=== PATIENT | male | born 1940 | race Caucasian/White ===

== ENCOUNTER → 2017-04-17 08:28 | Outpatient (POV) | payer MEDICARE, SELFPAY | PROVIDERS: Family Provider Internal Medicine Adolescent Medicine; PCP Internal Medicine Adolescent Medicine; Visit Provider Thoracic Surgery (Cardiothoracic Vascular Surgery) | DX: Z00.00 Encounter for general adult medical examination without abnormal findings (principal) ==

== ENCOUNTER → 2017-06-10 08:49 | Outpatient (CLI) | payer MEDICARE, SELFPAY ==
[2017-06-10 10:11] LABS: Prostate Specific Ag, Diagnost 8.66 ng/mL (0.0-4.0)
== END ==
PROVIDERS: Visit Provider Urology
DX: R97.20 Elevated prostate specific antigen [PSA] (principal)
CPT/HCPCS: 36415; 84153

== ENCOUNTER → 2017-07-22 16:06 | Outpatient (CLI) | payer MEDICARE, SELFPAY ==
[2017-07-22 17:35] LABS: Prostate Specific Ag Screen 9.2 ng/mL (0.0-4.0)
== END ==
PROVIDERS: Visit Provider Urology
DX: R97.20 Elevated prostate specific antigen [PSA] (principal); Z12.5 Encounter for screening for malignant neoplasm of prostate
CPT/HCPCS: 36415; G0103

== ENCOUNTER → 2017-10-16 08:33 | Outpatient (CLI) | payer MEDICARE, SELFPAY ==
--- NOTE | 2017-10-16 08:34 | CI_ITS ---
Cerebrovascular Exam Indications: 433.10 Occlusion/stenosis of carotid artery without cerebral infarction. IMPRESSIONS 1. The bilateral vertebral arteries are patent with normal antegrade flow. 2. Study suggests 20-49% stenosis involving the right internal carotid artery. 3. Study suggests 50-69% stenosis Left internal carotid. No change from the prior study. . Carotid duplex study. Complete study and Doppler flow study including spectral analysis, color and stafford scale imaging. Location: Vascular laboratory. Patient status: Outpatient. Tables: Arterial flow: + +--------+--------+ Location V sys V ed + +--------+--------+ Right CCA - proximal 73.9cm/s 19.6cm/s + +--------+--------+ Right CCA - distal 72.3cm/s 21.2cm/s + +--------+--------+ Right ECA 78.6cm/s -------- + +--------+--------+ Right ICA - proximal 66.8cm/s 22cm/s + +--------+--------+ Right ICA - mid 60.5cm/s 20.4cm/s + +--------+--------+ Right ICA - distal 89.6cm/s 32.2cm/s + +--------+--------+ Right vertebral 39.3cm/s -------- + +--------+--------+ Left CCA - proximal 85.6cm/s 20.4cm/s + +--------+--------+ Left CCA - distal 73.1cm/s 22cm/s + +--------+--------+ Left ECA 99.8cm/s -------- + +--------+--------+ Left ICA - proximal 147cm/s 43.2cm/s + +--------+--------+ Left ICA - mid 105cm/s 26.7cm/s + +--------+--------+ Left ICA - distal 76.2cm/s 25.1cm/s + +--------+--------+ Left vertebral 37.7cm/s -------- + +--------+--------+ Velocity ratios: + + + + + + Right, V sys Right, V ed Left, V sys Left, V ed + + + + + + Max ICA/dist CCA 1.24 1.52 2.01 1.96 + + + + + + (Report amended ) Electronically signed by: Jameel Metzger [id number]
== END ==
PROVIDERS: Family Provider Internal Medicine Adolescent Medicine; PCP Internal Medicine Adolescent Medicine; Visit Provider Internal Medicine
DX: R09.89 Other specified symptoms and signs involving the circulatory and respiratory systems (principal)
CPT/HCPCS: 93880

== ENCOUNTER → 2017-12-18 08:41 | Outpatient (CLI) | payer MEDICARE, SELFPAY ==
[2017-12-18 09:42] LABS: Basophils # 0.1 K/mm3 (0-0.2); Basophils % 0.7 % (0.1-2.0); Eosinophils # 0.2 K/mm3 (0.0-0.4); Eosinophils % 2.7 % (0.1-12.0); Hematocrit 46.4 % (42.0-52.0); Hemoglobin 14.9 g/dL (14.1-18.0); Lymphocytes # 2.3 K/mm3 (0.7-4.5); Lymphocytes % 29.6 K/mm3 (10-50); Mean Corpuscular HGB Conc 32.2 g/dL (31.8-35.4); Mean Corpuscular Hemoglobin 30.2 pg (27.0-31.2); Mean Corpuscular Volume 93.6 fl (80-94); Mean Platelet Volume 6.5 fl (7.4-10.4); Monocytes # 0.4 K/mm3 (0.1-1.0); Monocytes % 5.5 % (1.7-9.3); Neutrophils # 4.8 K/mm3 (1.8-7.8); Neutrophils % 61.5 % (37.0-80.0); Platelet Count 237 K/mm3 (142-424); Red Blood Count 4.96 M/mm3 (4.60-6.20); Red Cell Distribution Width 13.8 % (11.5-17.5); White Blood Count 7.8 K/mm3 (4.8-10.8)
[2017-12-18 10:19] LABS: Hemoglobin A1C 8.7 % (0.0-7.0)
[2017-12-18 11:32] LABS: Alanine Aminotransferase 16 U/L (12-78); Albumin Level 3.7 gm/dL (3.4-5.0); Albumin/Globulin Ratio 1.1 (1.1-1.8); Alkaline Phosphatase 73 U/L (46-116); Anion Gap 9.5 mEq/L (5-15); Aspartate Amino Transferase 10 U/L (15-37); Bilirubin,Total 0.8 mg/dL (0.2-1.0); Blood Urea Nitrogen 17 mg/dL (7-18); Calcium 9.5 mg/dL (8.5-10.1); Carbon Dioxide 34 mmol/L (21.0-32.0); Chloride 103 mmol/L (98-107); Chol/HDL Ratio 2.2 (1-3.5); Cholesterol 93 mg/dL (140-200); Creatinine,Serum 0.84 mg/dL (0.70-1.30); Estimated Glomerular Filt Rate 89 ml/min (>60); GFR (African American) 108 ML/MIN (>60); Globulin 3.4 gm/dl (1.3-3.2); Glucose 78 mg/dL (74-106); HDL Cholesterol 43 mg/dL (27-67); LDL Cholesterol 26 mg/dL (0-130); Potassium 3.5 mmoL/L (3.5-5.1); Prostate Specific Ag, Diagnost 7.41 ng/mL (0.0-4.0); Sodium 143 mmol/L (136-145); Thyroid Stimulating Hormone 1.74 uIU/ml (0.358-3.740); Total Protein,Serum 7.1 gm/dL (6.4-8.2); Triglycerides 121 mg/dL (30-200); VLDL Cholesterol 24 mg/dL (0-40)
[2017-12-19 18:20] LABS: Vitamin B12 523 pg/mL (232-1245)
== END ==
PROVIDERS: PCP Nurse Practitioner Family; Visit Provider Urology
DX: E53.8 Deficiency of other specified B group vitamins (principal); E11.65 Type 2 diabetes mellitus with hyperglycemia; R97.20 Elevated prostate specific antigen [PSA]; R41.3 Other amnesia
CPT/HCPCS: 36415; 80053; 80061; 82607; 83036; 84153; 84443; 85025

== ENCOUNTER → 2018-02-02 13:35 | Outpatient (POV) | payer MEDICARE, SELFPAY | PROVIDERS: Visit Provider Dermatology | DX: Z00.00 Encounter for general adult medical examination without abnormal findings (principal) ==

== ENCOUNTER → 2018-03-30 12:17 | Outpatient (CLI) | payer MEDICARE, SELFPAY ==
--- NOTE | 2018-03-30 12:20 | CI_ITS ---
Cerebrovascular Exam Indications: 433.10 Occlusion/stenosis of carotid artery without cerebral infarction. IMPRESSIONS 1. The bilateral vertebral arteries are patent with normal antegrade flow. 2. Study suggests 20-49% stenosis involving the right internal carotid artery. 3. Study suggests 50-69% stenosis involving the left internal carotid artery. No change from the study of 16-Oct-2017. Carotid duplex study. Complete study and Doppler flow study including spectral analysis, color and stafford scale imaging. Height: Height: 172.7cm. Height: 68in. Weight: Weight: 77.1kg. Weight: 169.6lb. Body mass index: BMI: 25.8kg/m^2. Body surface area: BSA: 1.94m^2. Location: Vascular laboratory. Patient status: Outpatient. Tables: Arterial flow: + +--------+--------+ Location V sys V ed + +--------+--------+ Right CCA - proximal 57.4cm/s 18.9cm/s + +--------+--------+ Right CCA - distal 69.1cm/s 18.9cm/s + +--------+--------+ Right ECA 67.6cm/s -------- + +--------+--------+ Right ICA - proximal 79.4cm/s 28.3cm/s + +--------+--------+ Right ICA - mid 55.8cm/s 22.8cm/s + +--------+--------+ Right ICA - distal 56.6cm/s 25.1cm/s + +--------+--------+ Right vertebral 47.9cm/s -------- + +--------+--------+ Left CCA - proximal 73.9cm/s 17.3cm/s + +--------+--------+ Left CCA - distal 73.1cm/s 20.4cm/s + +--------+--------+ Left ECA 80.9cm/s -------- + +--------+--------+ Left ICA - proximal 148cm/s 50.3cm/s + +--------+--------+ Left ICA - mid 132cm/s 29.1cm/s + +--------+--------+ Left ICA - distal 66cm/s 22.8cm/s + +--------+--------+ Left vertebral 29.9cm/s -------- + +--------+--------+ Velocity ratios: + + + + + + Right, V sys Right, V ed Left, V sys Left, V ed + + + + + + Max ICA/dist CCA 1.15 1.5 2.02 2.47 + + + + + + (Report amended ) Electronically signed by: Jameel Metzger [id number]
== END ==
PROVIDERS: PCP Internal Medicine Adolescent Medicine; Visit Provider Nurse Practitioner Family
DX: I65.23 Occlusion and stenosis of bilateral carotid arteries (principal)
CPT/HCPCS: 93880

== ENCOUNTER → 2018-05-12 09:27 | Outpatient (CLI) | payer MEDICARE, SELFPAY ==
[2018-05-12 09:53] LABS: Basophils % 0.5 % (0.1-2.0); Eosinophils # 0.2 K/mm3 (0.0-0.4); Eosinophils % 2.6 % (0.1-12.0); Hematocrit 41.7 % (42.0-52.0); Hemoglobin 14.2 g/dL (14.1-18.0); Lymphocytes # 2.3 K/mm3 (0.7-4.5); Lymphocytes % 34.4 % (10-50); Mean Corpuscular Hemoglobin 31.2 pg (27.0-31.2); Mean Corpuscular Volume 91.8 fl (80-94); Mean Platelet Volume 6.5 fl (7.4-10.4); Monocytes # 0.5 K/mm3 (0.1-1.0); Monocytes % 6.8 % (1.7-9.3); Neutrophils # 3.7 K/mm3 (1.8-7.8); Neutrophils % 55.7 % (37.0-80.0); Platelet Count 212 K/mm3 (142-424); Red Blood Count 4.54 M/mm3 (4.60-6.20); Red Cell Distribution Width 13.7 % (11.5-17.5); White Blood Count 6.7 K/mm3 (4.8-10.8)
[2018-05-12 10:46] LABS: Hemoglobin A1C 6.8 % (0.0-7.0)
[2018-05-12 10:51] LABS: Alanine Aminotransferase 22 U/L (12-78); Albumin Level 3.5 gm/dL (3.4-5.0); Albumin/Globulin Ratio 1.1 (1.1-1.8); Alkaline Phosphatase 69 U/L (46-116); Anion Gap 8.7 mEq/L (5-15); Aspartate Amino Transferase 11 U/L (15-37); Bilirubin,Total 0.7 mg/dL (0.2-1.0); Blood Urea Nitrogen 18 mg/dL (7-18); Calcium 9.3 mg/dL (8.5-10.1); Carbon Dioxide 33 mmol/L (21.0-32.0); Chloride 104 mmol/L (98-107); Chol/HDL Ratio 2.5 (1-3.5); Cholesterol 111 mg/dL (140-200); Creatinine,Serum 1.05 mg/dL (0.70-1.30); Estimated Glomerular Filt Rate 69 ml/min (>60); GFR (African American) 83 ML/MIN (>60); Globulin 3.1 gm/dl (1.3-3.2); Glucose 181 mg/dL (74-106); HDL Cholesterol 45 mg/dL (27-67); LDL Cholesterol 43 mg/dL (0-130); Potassium 3.7 mmoL/L (3.5-5.1); Sodium 142 mmol/L (136-145); Thyroid Stimulating Hormone 2.04 uIU/ml (0.358-3.740); Total Protein,Serum 6.6 gm/dL (6.4-8.2); Triglycerides 113 mg/dL (30-200); VLDL Cholesterol 23 mg/dL (0-40)
[2018-05-13 09:49] LABS: Vitamin B12 394 pg/mL (232-1245)
== END ==
PROVIDERS: Visit Provider Nurse Practitioner Family
DX: E11.9 Type 2 diabetes mellitus without complications (principal); E78.5 Hyperlipidemia, unspecified; F02.80 Dementia in other diseases classified elsewhere, unspecified severity, without behavioral disturbance, psychotic disturbance, mood disturbance, and anxiety; E53.8 Deficiency of other specified B group vitamins
CPT/HCPCS: 36415; 80053; 80061; 82607; 83036; 84443; 85025

== ENCOUNTER → 2018-07-27 09:18 | Outpatient (CLI) | payer MEDICARE, SELFPAY ==
[2018-07-27 11:04] LABS: Prostate Specific Ag, Diagnost 9.54 ng/mL (0.0-4.0)
== END ==
PROVIDERS: Visit Provider Urology
DX: R97.20 Elevated prostate specific antigen [PSA] (principal)
CPT/HCPCS: 36415; 84153

== ENCOUNTER → 2018-08-10 12:36 | Outpatient (CLI) | payer MEDICARE, SELFPAY ==
--- NOTE | 2018-08-10 12:41 | CA_ITS ---
PROCEDURE: 2-D M-mode and color Doppler study INDICATIONS FOR THE TEST: Chest pain COPD Heart Murmur Tobacco SmokingEX Palpitations Fatigue Syncope Edema HypertensionXDiabetes MellitusX Rheumatic Fever SOB KNIGHT Obesity HyperlipidemiaX Family History HD Additional History RBBB,CAD, PATIENT INFORMATION HEIGHT: 67 WEIGHT:169 GENDER: Male B/P:118/67 2-D/M-MODE INTERPRETATION: 2-D MEASUREMENTS OBSERVED VALUES IN CMS Right Ventricular Dimension (RVDd) 3.0 Interventricular Septum (Thickness)(IVsd) 1.0 Left Ventricular Internal Dimensions(LVIDd) 4.3 Left Ventricular Posterior Wall (Thickness)(LVPWd) 1.0 Aortic Root 3.6 Aortic Cusp Separation .8 Left Atrial Dimensions (LAD) 2.1 2D 1. Left atrium is mildly enlarged, left ventricle is normal size, mild concentric left ventricular hypertrophy, visually estimated ejection fraction 55% with no regional wall motion abnormality. 2. The right atrium and right ventricle are mildly enlarged with normal contractility. 3. The aortic valve is heavily calcified with severe reduction in the leaflet mobility. 4. The mitral valve has mitral annular calcification which extends and both anterior and posterior mitral leaflet. 5. The tricuspid valve is grossly normal. 6. The pulmonic valve is poorly visualized. 7. No significant pericardial effusion noted. DOPPLER INTERROGATION: 1. The maximum aortic out flow velocity recorded study 4.4 m/s, resulting in a mean gradient across valve of 46 mmHg, this represents severe aortic stenosis, there is mild aortic insufficiency, aortic valve area is not accurately calculated in this study. 2. The mitral inflow velocity within normal range, there is no mitral stenosis, there is mild mitral regurgitation, Doppler evidence of impaired LV relaxation seen, there is no tissue Doppler performed. 3. Mild tricuspid regurgitation, tricuspid regurgitation jet velocity is inadequate for calculation of the right ventricular systolic pressure. CONCLUSION: 1. Biatrial enlargement, normal left ventricular size, mild concentric left ventricular hypertrophy, visually estimated ejection fraction 55% with no regional wall motion abnormality, Doppler evidence of impaired relaxation seen. 2. Mildly enlarged right ventricle with normal contractility. 3. Thickened and calcified aortic valve with mean gradient across valve of 46 mmHg represents severe aortic stenosis, there is mild aortic insufficiency. 4. Mild mitral and tricuspid regurgitation 5. No significant pericardial effusion noted.
== END ==
PROVIDERS: PCP Nurse Practitioner Family; Visit Provider Internal Medicine
DX: I35.0 Nonrheumatic aortic (valve) stenosis (principal)
CPT/HCPCS: 93306

== ENCOUNTER → 2018-10-01 09:17 | Outpatient (CLI) | payer MEDICARE, SELFPAY ==
--- NOTE | 2018-10-01 09:20 | CI_ITS ---
Cerebrovascular Exam Indications: 433.10 Occlusion/stenosis of carotid artery without cerebral infarction. IMPRESSIONS 1. The bilateral vertebral arteries are patent with normal antegrade flow. 2. Study suggests 20-49% stenosis involving the right internal carotid artery. No change from the study of March 2018. 3. Study suggests 50-69% stenosis involving the left internal carotid artery. No change from the study of March 2018. History: Memory loss. Risk factors: Hypertension. Carotid duplex study. Complete study and Doppler flow study including spectral analysis, color and stafford scale imaging. Height: Height: 172.7cm. Height: 68in. Weight: Weight: 61.2kg. Weight: 134.7lb. Body mass index: BMI: 20.5kg/m^2. Body surface area: BSA: 1.71m^2. Location: Vascular laboratory. Patient status: Outpatient. Tables: Arterial flow: + +--------+--------+ Location V sys V ed + +--------+--------+ Right CCA - proximal 94.3cm/s 23.7cm/s + +--------+--------+ Right CCA - distal 77.1cm/s 18.2cm/s + +--------+--------+ Right ECA 113cm/s -------- + +--------+--------+ Right ICA - proximal 123cm/s 40.5cm/s + +--------+--------+ Right ICA - mid 88.9cm/s 26.5cm/s + +--------+--------+ Right ICA - distal 98.7cm/s 29.5cm/s + +--------+--------+ Right vertebral 50.3cm/s -------- + +--------+--------+ Left CCA - proximal 79.2cm/s 17cm/s + +--------+--------+ Left CCA - distal 96.2cm/s 20.1cm/s + +--------+--------+ Left ECA 132cm/s -------- + +--------+--------+ Left ICA - proximal 189cm/s 67.3cm/s + +--------+--------+ Left ICA - mid 136cm/s 27.5cm/s + +--------+--------+ Left ICA - distal 67.1cm/s 22.5cm/s + +--------+--------+ Left vertebral 34.7cm/s -------- + +--------+--------+ Velocity ratios: + + + + + + Right, V sys Right, V ed Left, V sys Left, V ed + + + + + + Max ICA/dist CCA 1.6 2.23 1.96 3.35 + + + + + + (Report amended ) Electronically signed by: Jameel Metzger [id number]
== END ==
PROVIDERS: PCP Internal Medicine Adolescent Medicine; Visit Provider Internal Medicine
DX: I65.23 Occlusion and stenosis of bilateral carotid arteries (principal)
CPT/HCPCS: 93880

== ENCOUNTER → 2018-10-26 10:01 | Outpatient (CLI) | payer MEDICARE, SELFPAY ==
[2018-10-26 10:21] LABS: Basophils % 0.4 % (0.1-2.0); Eosinophils # 0.2 K/mm3 (0.0-0.4); Eosinophils % 2.1 % (0.1-12.0); Hematocrit 42.7 % (42.0-52.0); Hemoglobin 14.3 g/dL (14.1-18.0); Lymphocytes # 3.2 K/mm3 (0.7-4.5); Lymphocytes % 36.2 % (10-50); Mean Corpuscular HGB Conc 33.6 g/dL (31.8-35.4); Mean Corpuscular Volume 92.2 fl (80-94); Mean Platelet Volume 6.6 fl (7.4-10.4); Monocytes # 0.5 K/mm3 (0.1-1.0); Monocytes % 5.5 % (1.7-9.3); Neutrophils # 4.9 K/mm3 (1.8-7.8); Neutrophils % 55.9 % (37.0-80.0); Platelet Count 255 K/mm3 (142-424); Red Blood Count 4.63 M/mm3 (4.60-6.20); Red Cell Distribution Width 13.6 % (11.5-17.5); White Blood Count 8.8 K/mm3 (4.8-10.8)
[2018-10-26 11:05] LABS: Albumin Level 3.5 gm/dL (3.4-5.0); Albumin/Globulin Ratio 1.1 (1.1-1.8); Alkaline Phosphatase 75 U/L (46-116); Blood Urea Nitrogen 16 mg/dL (7-18); Chloride 106 mmol/L (98-107); Cholesterol 110 mg/dL (140-200); Globulin 3.2 gm/dl (1.3-3.2); Total Protein,Serum 6.7 gm/dL (6.4-8.2); Triglycerides 124 mg/dL (30-200); VLDL Cholesterol 25 mg/dL (0-40)
[2018-10-26 11:44] LABS: Alanine Aminotransferase 20 U/L (12-78); Aspartate Amino Transferase 12 U/L (15-37); Bilirubin,Total 0.7 mg/dL (0.2-1.0); Calcium 9.5 mg/dL (8.5-10.1); Carbon Dioxide 30 mmol/L (21.0-32.0); Chol/HDL Ratio 2.6 (1-3.5); Creatinine,Serum 0.92 mg/dL (0.70-1.30); Estimated Glomerular Filt Rate 80 ml/min (>60); GFR (African American) 97 ML/MIN (>60); HDL Cholesterol 43 mg/dL (27-67); LDL Cholesterol 42 mg/dL (0-130); Sodium 147 mmol/L (136-145)
[2018-10-26 12:08] LABS: Glucose 39 mg/dL (74-106)
[2018-10-26 14:19] LABS: Hemoglobin A1C 6.6 % (0.0-7.0)
[2018-10-27 11:14] LABS: Vitamin B12 793 pg/mL (232-1245)
== END ==
PROVIDERS: Visit Provider Nurse Practitioner Family
DX: E11.9 Type 2 diabetes mellitus without complications (principal); E78.5 Hyperlipidemia, unspecified; E53.8 Deficiency of other specified B group vitamins; I10 Essential (primary) hypertension; Z79.84 Long term (current) use of oral hypoglycemic drugs
CPT/HCPCS: 36415; 80053; 80061; 82607; 83036; 85025

== ENCOUNTER → 2019-01-19 13:00 | Outpatient (CLI) | payer MEDICARE, SELFPAY ==
[2019-01-19 14:47] LABS: Prostate Specific Ag, Diagnost 8.07 ng/mL (0.0-4.0)
== END ==
PROVIDERS: Visit Provider Urology
DX: R97.20 Elevated prostate specific antigen [PSA] (principal)
CPT/HCPCS: 36415; 84153

== ENCOUNTER → 2019-04-12 08:13 | Outpatient (CLI) | payer MEDICARE, SELFPAY ==
--- NOTE | 2019-04-12 08:14 | CA_ITS ---
APPROVED REPORT Water Quality Tester: CT Laterality: Bilateral Study Quality: AdequateGood Indications: bruits Risk Factors years Treated with medical therapy : Diabetes Doppler Spectral Velocity Analysis ECA (R) 108.50/8.20 cm/s ECA (L) 169.10/126.20 cm/s dICA (R) 94.30/23.90 cm/s dICA (L) 149.00/19.50 cm/s Lincoln (R) 89.00/37.40 cm/s Lincoln (L) 167.80/35.90 cm/s pICA (R) 142.20/29.90 cm/s pICA (L) 244.30/76.90 cm/s dCCA (R) 74.90/18.20 cm/s dCCA (L) 76.30/16.50 cm/s pCCA (R) 144.40/22.50 cm/s pCCA (L) 90.50/15.00 cm/s Vert (R) 55.10/18.20 cm/s Vert (L) 37.10/7.50 cm/s ICA/CCA 1.90 ICA/CCA 3.20 Findings Duplex evaluation demonstrates stenosis of the right proximal internal carotid artery in the range of 50-69% with PSV =140 cm/sec, EDV <100 cm/sec, and IC/CC Ratio <4.0., lower end of scale. Duplex evaluation demonstrates stenosis of the left proximal internal carotid artery in the range of 50-69% with PSV =140 cm/sec, EDV <100 cm/sec, and IC/CC Ratio <4.0. Duplex evaluation demonstrates antegrade flow of the bilateral Vertebral Arteries. Conclusion Duplex evaluation demonstrates stenosis of the right proximal internal carotid artery in the range of 50-69% with PSV =140 cm/sec, EDV <100 cm/sec, and IC/CC Ratio <4.0., lower end of scale. Duplex evaluation demonstrates stenosis of the left proximal internal carotid artery in the range of 50-69% with PSV =140 cm/sec, EDV <100 cm/sec, and IC/CC Ratio <4.0. Duplex evaluation demonstrates antegrade flow of the bilateral Vertebral Arteries. Electronically signed by : Dallin Duke, 04/12/2019 17:29:12
== END ==
PROVIDERS: PCP Nurse Practitioner Family; Visit Provider Physician Assistant
DX: R09.89 Other specified symptoms and signs involving the circulatory and respiratory systems (principal)
CPT/HCPCS: 93880

== ENCOUNTER → 2019-07-20 11:16 | Outpatient (CLI) | payer MEDICARE, SELFPAY ==
[2019-07-20 12:38] LABS: Basophils # 0.1 K/mm3 (0-0.2); Basophils % 1.2 % (0.1-2.0); Eosinophils # 0.2 K/mm3 (0.0-0.4); Eosinophils % 4.1 % (0.1-12.0); Hematocrit 41.7 % (42.0-52.0); Hemoglobin 13.6 g/dL (14.1-18.0); Lymphocytes # 1.8 K/mm3 (0.7-4.5); Lymphocytes % 31.8 % (10-50); Mean Corpuscular HGB Conc 32.6 g/dL (31.8-35.4); Mean Corpuscular Hemoglobin 30.7 pg (27.0-31.2); Mean Corpuscular Volume 94.2 fl (80-94); Mean Platelet Volume 7.3 fl (7.4-10.4); Monocytes # 0.4 K/mm3 (0.1-1.0); Monocytes % 6.5 % (1.7-9.3); Neutrophils # 3.2 K/mm3 (1.8-7.8); Neutrophils % 56.5 % (37.0-80.0); Platelet Count 197 K/mm3 (142-424); Red Blood Count 4.42 M/mm3 (4.60-6.20); Red Cell Distribution Width 13.7 % (11.5-17.5); White Blood Count 5.7 K/mm3 (4.8-10.8)
[2019-07-20 12:46] LABS: Hemoglobin A1C 6.6 % (4.0-6.0)
[2019-07-20 12:54] LABS: Alanine Aminotransferase 9 U/L (12-78); Albumin Level 3.9 g/dl (3.5-5.0); Albumin/Globulin Ratio 1.6 (1.1-1.8); Alkaline Phosphatase 72 U/L (38-126); Aspartate Amino Transferase 19 U/L (17-59); Bilirubin,Total 0.6 mg/dl (0.2-1.3); Blood Urea Nitrogen 18 mg/dl (9-20); Calcium 9.7 mg/dl (8.4-10.2); Carbon Dioxide 30 mmol/L (22.0-30.0); Chloride 103 mmol/L (98-107); Chol/HDL Ratio 2.1 (1-3.5); Cholesterol 92 mg/dl (140-200); Estimated Glomerular Filt Rate 82 ml/min (>60); GFR (African American) 99 ML/MIN (>60); Globulin 2.4 g/dL (1.3-3.2); Glucose 142 mg/dl (74-100); HDL Cholesterol 44 mg/dl (40-60); Sodium 140 mmol/L (136-145); Total Protein,Serum 6.3 g/dl (6.3-8.2); Triglycerides 102 mg/dl (30-150); VLDL Cholesterol 20 mg/dL (0-40)
[2019-07-20 13:05] LABS: Direct LDL Cholesterol 31.35 mg/dL (100-129)
[2019-07-21 07:09] LABS: Creatinine, Urine 157.1 mg/dL (Not Estab.); Microalbumin, Urine 28.8 ug/mL (Not Estab.)
[2019-07-22 09:23] LABS: Vitamin B12 422 pg/mL (232-1245)
== END ==
PROVIDERS: Visit Provider Internal Medicine Adolescent Medicine
DX: I10 Essential (primary) hypertension (principal); E53.8 Deficiency of other specified B group vitamins; E11.65 Type 2 diabetes mellitus with hyperglycemia; Z79.4 Long term (current) use of insulin; Z79.84 Long term (current) use of oral hypoglycemic drugs
CPT/HCPCS: 36415; 80053; 80061; 82043; 82570; 82607; 83036; 85025

== ENCOUNTER → 2019-09-30 12:52 | Outpatient (CLI) | payer MEDICARE, SELFPAY ==
--- NOTE | 2019-09-30 13:05 | CA_ITS ---
APPROVED REPORT EXAM: Comprehensive 2D, Doppler, and color-flow Echocardiogram Information Systems Security Manager: Wendy Napoles CRT Ht: 5 ft 8 in Wt: 160lbs BSA: 1.86 BP: 115/73 mmHg Indications: Abnormal ECG, CAD, PAD, RBBB, TONY 2D Dimensions LVOT 1.04 cm (M/F) 1.5-2.5 M-Mode Dimensions RVDd 2.36 cm (0.9-2.6) LVDd 4.14 cm (3.5-5.7) LVDs 2.61 cm (3.5-5.7) IVSd 1.93 cm (0.6-1.1) PWd 0.54 cm (0.6-1.1) EF (Teich) 67.30% FS 37.00% EDV (Teich) 75.90 mL ESV (Teich) 24.80 mL LV Diastology E/A Ratio 0.55 Aortic Valve LVOT Max 103.00 (70-110 cm/s) LVOT VTI 20.02 cm Mitral Valve MV A Velocity 116.00 (40-130 cm/s) Left Ventricle Left atrium is mildly enlarged, left ventricle is normal size, mild concentric left ventricular hypertrophy, visually estimated ejection fraction 55% with no regional wall motion abnormality, grade 1 diastolic dysfunction seen with tissue Doppler evidence of raise left atrial pressure. Right Ventricle Right atrium and right ventricular normal size and contractility. Aortic Valve Aortic valve is thickened and calcified with severe restriction in the leaflet mobility, the aortic outflow velocity is not accurately recorded, however it appears to be over 4 m/s resulting in a mean gradient across aortic valve of over 40 mmHg this likely represents severe to critical aortic stenosis, there is mild aortic insufficiency. Mitral Valve Mitral valve has mitral calcification which extends in both anterior posterior mitral leaflet, there is no mitral stenosis, there is mild mitral regurgitation. Tricuspid Valve Tricuspid valve is grossly normal, there is mild tricuspid regurgitation. Pulmonic Valve Pulmonic valve is poorly visualized. Great Vessels Aortic root is normal size. Pericardium No significant pericardial effusion noted. Conclusion 1. Mildly enlarged left atrium, normal left ventricular size, mild concentric left ventricular hypertrophy, visually estimated 55% with no regional wall motion abnormality. Grade 1 diastolic dysfunction seen with tissue Doppler evidence of raise left atrial pressure. 2. Thickened and calcified aortic valve likely with severe to critical aortic stenosis as described above, there is mild aortic insufficiency, if clinically indicated transesophageal echocardiogram is recommended for further evaluation of the aortic valve. 3. Mild mitral and tricuspid regurgitation. 4. No significant pericardial effusion noted. Electronically signed by : Karthikeyan Zuniga, 10/03/2019 07:04:14
== END ==
PROVIDERS: PCP Nurse Practitioner Family; Visit Provider Physician Assistant
DX: I35.0 Nonrheumatic aortic (valve) stenosis (principal)
CPT/HCPCS: 93306

== ENCOUNTER → 2019-10-07 10:30 | Outpatient (CLI) | payer MEDICARE, SELFPAY ==
[2019-10-07 12:57] LABS: Blood Urea Nitrogen 20 mg/dl (9-20); Estimated Glomerular Filt Rate 82 ml/min (>60); GFR (African American) 99 ML/MIN (>60)
== END ==
PROVIDERS: Visit Provider Nurse Practitioner Family
DX: Z01.818 Encounter for other preprocedural examination (principal)
CPT/HCPCS: 36415; 82565; 84520

== ENCOUNTER → 2019-10-11 09:39 | Outpatient (CLI) | payer MEDICARE, SELFPAY ==
--- NOTE | 2019-10-11 09:44 | CT_ITS ---
PROCEDURE: CT CHEST W CON CLINCAL INDICATION: WEIGHT LOSS,H/O BLADDER CA,ELEVATED PSA COMPARISON: CT ABDOMEN PELVIS W CON from 10/11/2019 TECHNIQUE: IV Contrast: 75ml Optiray 350 Axial images obtained with sagittal and coronal reformats. All CT scans at the facility use one or more dose reduction, viz: automated exposure control, ma/kV adjustment per patient size (including targeted exams where dose is matched to indication, i.e. head), or iterative reconstruction technique. FINDINGS: HEART AND MEDIASTINAL STRUCTURES: There are coronary artery calcifications and/or stents noted with dense calcification of the mitral valve annulus and also calcification of the aortic valve. The heart size is normal. There is mild tortuosity of the thoracic aorta. No evidence of aortic aneurysm or dissection. No evidence of central pulmonary embolus. No mediastinal or hilar mass or adenopathy. LUNGS AND PLEURAL SPACES: Changes of COPD with scattered areas of scarring. 4 mm noncalcified nodule right apex image 16 series 4. Centrilobular emphysematous changes are present. 4 mm noncalcified nodule right upper lobe anteriorly image 35 series 4. 4 mm noncalcified nodule left apex image 9, 3 mm noncalcified nodule left apex posteriorly image 12. Subpleural fissural nodule at 5 mm along the left major fissure image 35 the linear opacity in the lingula at 5 mm which may be due to an area of scarring image 52 series 4. No lobar consolidation or collapse BONY STRUCTURES: Upper thoracic scoliosis convex left. Degenerative changes in the thoracic spine. UPPER ABDOMEN: Incompletely visualized left renal cyst at 3.8 cm. Mild nonspecific thickening of the esophagus distally ADDITIONAL FINDINGS: Gynecomastia IMPRESSION: COPD with centrilobular emphysema and multiple small pulmonary nodules as detailed above. These may be inflammatory/infectious. Cannot exclude neoplasm. Recommend six-month follow-up to confirm short term stability. Coronary artery calcification along with mitral valve annular and aortic valve calcification with other non acute findings as described above Dictated by: Jameel Metzger MD 10/12/2019 09:02 Electronically signed by Jameel Metzger MD in [place] 10/12/2019 09:02
--- NOTE | 2019-10-11 09:44 | CT_ITS ---
PROCEDURE: CT ABDOMEN PELVIS W CON CLINICAL INDICATION: WEIGHT LOSS,H/O BLADDER CA,ELEVATED PSA COMPARISON: CT CHEST W CON from 10/11/2019 TECHNIQUE: IV Contrast: 75ML OPTIRAY 350 Oral Contrast None Axial images obtained with sagittal and coronal reformats. All CT scans at the facility use one or more dose reduction, viz: automated exposure control, ma/kV adjustment per patient size (including targeted exams where dose is matched to indication, i.e. head), or iterative reconstruction technique. FINDINGS: The liver, spleen, adrenal glands, gallbladder, have an unremarkable appearance. There are multiple coarse calcifications within the pancreas consistent with chronic pancreatitis. There is a small area decreased attenuation within the body of the pancreas measuring approximately 8 mm series 5, image 36 possibly due to partial volume averaging from fatty invagination versus a small cystic lesion. Three month follow-up suggested. There is a 4 cm left renal cyst. No hydronephrosis or renal calculi. No evidence appendicitis. There is colonic diverticulosis without diverticulitis. There is a mild amount of retained colonic feces The prostate is enlarged at 5.5 x 4.6 cm. There is some minimal thickening of the urinary bladder wall which is nonspecific. The the degenerative changes are present in the lumbar spine. IMPRESSION: 1. Scattered pancreatic calcifications consistent with chronic pancreatitis. Indeterminate 8 mm hypodensity in the body of the pancreas possibly due to partial volume averaging artifact versus a small cystic lesion. Recommend three month follow-up with pancreatic protocol to confirm short term stability. 2. Colonic diverticulosis without diverticulitis. 3. Enlarged prostate with mild thickening of the urinary bladder wall Dictated by: Jameel Metzger MD 10/12/2019 09:11 Electronically signed by Jameel Metzger MD in [place] 10/12/2019 09:11
--- NOTE | 2019-10-11 10:22 | CA_ITS ---
APPROVED REPORT Childhood Development Teacher: J CARLOS Laterality: Bilateral Study Quality: Good Indications: TONY Doppler Spectral Velocity Analysis dICA (R) 107.00/26.00 cm/s dICA (L) 60.80/17.40 cm/s Lincoln (R) 94.50/23.90 cm/s Lincoln (L) 125.20/20.20 cm/s pICA (R) 116.50/30.50 cm/s pICA (L) 207.50/64.50 cm/s dCCA (R) 85.30/17.80 cm/s dCCA (L) 88.00/15.80 cm/s pCCA (R) 128.00/24.80 cm/s pCCA (L) 78.50/18.70 cm/s Vert (R) 55.10/14.50 cm/s Vert (L) 43.90/8.40 cm/s ICA/CCA 1.40 ICA/CCA 2.40 Findings Duplex evaluation demonstrates stenosis of the right proximal internal carotid artery in the range of 50-69%(lower end of scale)Duplex evaluation demonstrates stenosis of the left proximal internal carotid artery in the range of 50-69% with PSV =140 cm/sec, EDV <100 cm/sec, and IC/CC Ratio <4.0. with PSV =140 cm/sec, EDV <100 cm/sec, and IC/CC Ratio <4.0.Antegrade flow seen bilateral vertebral arteries. No significant change from prior study of 04/12/2019 Conclusion Duplex evaluation demonstrates stenosis of the right proximal internal carotid artery in the range of 50-69%(lower end of scale)Duplex evaluation demonstrates stenosis of the left proximal internal carotid artery in the range of 50-69% with PSV =140 cm/sec, EDV <100 cm/sec, and IC/CC Ratio <4.0. with PSV =140 cm/sec, EDV <100 cm/sec, and IC/CC Ratio <4.0.Antegrade flow seen bilateral vertebral arteries. No significant change from prior study of 04/12/2019 Electronically signed by : Jameel Metzger MD 10/11/2019 17:19:00
== END ==
PROVIDERS: PCP Nurse Practitioner Family; Visit Provider Nurse Practitioner Family
DX: R09.89 Other specified symptoms and signs involving the circulatory and respiratory systems; I65.23 Occlusion and stenosis of bilateral carotid arteries; R97.20 Elevated prostate specific antigen [PSA]; R63.4 Abnormal weight loss; Z85.51 Personal history of malignant neoplasm of bladder
CPT/HCPCS: 71260; 74177; 93880; Q9967

== ENCOUNTER → 2019-10-20 10:19 | Outpatient (CLI) | payer MEDICARE, SELFPAY ==
[2019-10-21 18:02] LABS: PSA, Free 2.23 ng/mL; Prostate Specific Ag 9.3 ng/mL (0.0-4.0)
== END ==
PROVIDERS: Visit Provider Urology
DX: Z85.51 Personal history of malignant neoplasm of bladder (principal); R97.20 Elevated prostate specific antigen [PSA]
CPT/HCPCS: 36415; 84153; 84154

== ENCOUNTER → 2019-10-27 11:11 | Outpatient (CLI) | payer MEDICARE, SELFPAY ==
[2019-10-27 13:46] LABS: Coronavirus 19 IgG Antibody Negative (Negative); Coronavirus 19 IgM Antibody Negative (Negative)
== END ==
PROVIDERS: Visit Provider Urology
DX: Z01.818 Encounter for other preprocedural examination (principal)
CPT/HCPCS: 86328

== ENCOUNTER 2019-10-28 08:12 | Day surgery (SDC) | payer MEDICARE, SELFPAY ==
[2019-10-25 14:03] VITALS: BMI 25.0
[2019-10-28 08:48] VITALS: BP 137/66; PULSE 60; RESP 18; TEMP 36.2; O2SAT 96
[2019-10-28 09:17] LABS: POC Glucose,Bedside 123 (70-110)
[2019-10-28 09:32] VITALS: BP 150/74; PULSE 59; RESP 18; TEMP 36.7; O2SAT 94
[2019-10-28 09:50] VITALS: BP 150/74; PULSE 59; RESP 18; TEMP 36.7; O2SAT 94
--- NOTE | 2019-10-28 12:06 | [facility].OPNOTE ---
Date of procedure: 10/28/19 Pre-op Diagnosis:: History of bladder cancer Post-op Diagnosis:: Same Procedure performed:: Flexible cystoscopy Surgeon:: Chucky Britton MD Anesthesia: local Estimated blood loss (mL): 0 Clinical Note:: 79-year-old white male with history of bladder cancer presents for surveillance cystoscopy today. Operative findings:: No evidence of bladder tumors. He does have some trilobar prostatic hyperplasia. Operative note:: Patient taken to the treatment room on the stretcher. In the supine position he was prepped and draped in the standard surgical fashion and 2% lidocaine placed into the urethra and the urethra clamped for 5 minutes. After 5 minutes the clamp was removed and the flexible cystoscope was introduced into the urethral meatus. Passed to the prostatic urethra without difficulty. Prostatic urethra was noted to show trilobar hyperplasia and the scope was passed into the bladder without difficulty. The bladder was examined in a systematic fashion. Some mild trabeculation was noted but no significant cellule or diverticular formation. There is no evidence of recurrent bladder tumors. Ureteral orifices were somewhat obscured by the median lobe but were visualized and clear reflux of urine was noted from each. Scope removed patient tolerated well. We discussed the findings today and we will see him back in 1 year for surveillance cystoscopy. A prescription for tamsulosin was given at discharge for his BPH. Condition: stable Disposition: same day Specimens:: None Complications:: None
== END 2019-10-28 09:50 | disposition home or self-care (01) ==
LOC: OUTP 08:14
PROVIDERS: PCP Nurse Practitioner Family; Visit Provider Urology
PROC: (CPT 52000; principal; 2019-10-28 09:00)
DX: N40.0 Benign prostatic hyperplasia without lower urinary tract symptoms (principal); Z85.51 Personal history of malignant neoplasm of bladder; E11.9 Type 2 diabetes mellitus without complications; F41.9 Anxiety disorder, unspecified; I65.29 Occlusion and stenosis of unspecified carotid artery; F03.90 Unspecified dementia, unspecified severity, without behavioral disturbance, psychotic disturbance, mood disturbance, and anxiety; I10 Essential (primary) hypertension; Z87.442 Personal history of urinary calculi; Z79.82 Long term (current) use of aspirin; Z79.84 Long term (current) use of oral hypoglycemic drugs; Z79.4 Long term (current) use of insulin; Z79.899 Other long term (current) drug therapy
CPT/HCPCS: 52000; 82962

== ENCOUNTER → 2020-01-23 15:01 | Outpatient (CLI) | payer MEDICARE, SELFPAY ==
[2020-01-23 15:37] LABS: Basophils % 0.7 % (0.1-2.0); Eosinophils # 0.2 K/mm3 (0.0-0.4); Eosinophils % 2.7 % (0.1-12.0); Hematocrit 44.7 % (42.0-52.0); Hemoglobin 14.6 g/dL (14.1-18.0); Lymphocytes % 30.6 % (10-50); Mean Corpuscular HGB Conc 32.7 g/dL (31.8-35.4); Mean Corpuscular Volume 94.6 fl (80-94); Mean Platelet Volume 7.6 fl (7.4-10.4); Monocytes # 0.4 K/mm3 (0.1-1.0); Monocytes % 6.1 % (1.7-9.3); Neutrophils # 3.8 K/mm3 (1.8-7.8); Platelet Count 220 K/mm3 (142-424); Red Blood Count 4.72 M/mm3 (4.60-6.20); White Blood Count 6.4 K/mm3 (4.8-10.8)
[2020-01-23 16:19] LABS: Hemoglobin A1C 6.4 % (4.0-6.0)
[2020-01-23 16:20] LABS: Chloride 99 mmol/L (98-107); Sodium 142 mmol/L (136-145)
[2020-01-23 16:22] LABS: Alanine Aminotransferase 9 U/L (12-78); Aspartate Amino Transferase 20 U/L (17-59); Blood Urea Nitrogen 18 mg/dl (9-20); Estimated Glomerular Filt Rate 82 ml/min (>60); GFR (African American) 99 ML/MIN (>60)
[2020-01-23 16:23] LABS: Albumin Level 4.3 g/dl (3.5-5.0); Albumin/Globulin Ratio 1.5 (1.1-1.8); Alkaline Phosphatase 64 U/L (38-126); Bilirubin,Total 0.8 mg/dl (0.2-1.3); Calcium 10.2 mg/dl (8.4-10.2); Carbon Dioxide 35 mmol/L (22.0-30.0); Globulin 2.8 g/dL (1.3-3.2); Glucose 106 mg/dl (74-100); Total Protein,Serum 7.1 g/dl (6.3-8.2)
[2020-01-23 19:35] LABS: Vitamin B12 > 1000 pg/mL (239-931)
== END ==
PROVIDERS: Visit Provider Nurse Practitioner Family
DX: E53.8 Deficiency of other specified B group vitamins (principal); E11.9 Type 2 diabetes mellitus without complications; Z79.4 Long term (current) use of insulin
CPT/HCPCS: 36415; 80053; 82607; 83036; 85025

== ENCOUNTER → 2020-01-26 14:10 | Outpatient (CLI) | payer MEDICARE, SELFPAY ==
--- NOTE | 2020-01-26 14:15 | XR_ITS ---
PROCEDURE: XR LUMBAR SPINE MIN 4V CLINICAL INDICATION: PAIN DUE TO TRAUMA,LOW BACK PAIN COMPARISON: CT CT ABDOMEN PELVIS W CON from 10/11/2019 FINDINGS: There is normal alignment. There is lumbarization of the S1 segment. Mild wedge compression changes are present at L1 with loss of height anteriorly of approximately 30 percent. There is degenerative disc disease at L4-5 and there are anterior osteophytes present in the lumbar spine. Generalized vascular calcification is also noted IMPRESSION: 1. 30 percent wedge compression changes of L1 which has developed since 10/11/2019. No obvious retropulsion. 2. Lumbar spondylosis Dictated by: Jameel Metzger MD 01/26/2020 14:42 Jameel Metzger MD in [place] 01/26/2020 14:42
== END ==
PROVIDERS: PCP Nurse Practitioner Family; Visit Provider Nurse Practitioner Family
DX: M54.5 Low back pain (principal); G89.11 Acute pain due to trauma
CPT/HCPCS: 72110

== ENCOUNTER → 2020-04-12 09:16 | Outpatient (CLI) | payer MEDICARE, SELFPAY ==
--- NOTE | 2020-04-12 09:17 | CA_ITS ---
APPROVED REPORT Sprayer Leather: Wendy Napoles CRT, scanned by Prasanth Laterality: Bilateral Indications: TONY Risk Factors Hypertension: Hyperlipidemia Doppler Spectral Velocity Analysis ECA (R) 75.60/9.00 cm/s ECA (L) 113.70/8.70 cm/s dICA (R) 85.30/15.00 cm/s dICA (L) 72.60/15.00 cm/s Lincoln (R) 86.00/18.70 cm/s Lincoln (L) 59.10/16.50 cm/s pICA (R) 92.00/21.70 cm/s pICA (L) 130.00/17.20 cm/s dCCA (R) 69.60/12.70 cm/s dCCA (L) 64.20/12.80 cm/s pCCA (R) 113.00/16.50 cm/s pCCA (L) 90.90/15.00 cm/s Vert (R) 39.60/10.70 cm/s Vert (L) 53.50/9.60 cm/s ICA/CCA 1.30 ICA/CCA 2.00 Findings Duplex evaluation demonstrates stenosis of the right proximal internal carotid artery in the range of 20-49%, lower end of scale. Duplex evaluation demonstrates stenosis of the left proximal internal carotid artery in the range of 50-69%, lower end of scale. Duplex evaluation demonstrates antegrade flow of the bilateral Vertebral Arteries. Conclusion Duplex evaluation demonstrates stenosis of the right proximal internal carotid artery in the range of 20-49%, lower end of scale. Duplex evaluation demonstrates stenosis of the left proximal internal carotid artery in the range of 50-69%, lower end of scale. Duplex evaluation demonstrates antegrade flow of the bilateral Vertebral Arteries. Electronically signed by : Jameel Metzger MD 04/12/2020 16:09:07
== END ==
PROVIDERS: PCP Nurse Practitioner Family; Visit Provider Internal Medicine Cardiovascular Disease
DX: I65.23 Occlusion and stenosis of bilateral carotid arteries (principal)
CPT/HCPCS: 93880

== ENCOUNTER → 2020-04-24 11:37 | Outpatient (CLI) | payer MEDICARE, SELFPAY ==
[2020-04-25 08:36] LABS: PSA, Free 1.96 ng/mL; Prostate Specific Ag 8.6 ng/mL (0.0-4.0)
== END ==
PROVIDERS: Visit Provider Urology
DX: R97.20 Elevated prostate specific antigen [PSA] (principal)
CPT/HCPCS: 36415; 84153; 84154

== ENCOUNTER → 2020-04-26 12:13 | Outpatient (CLI) | payer MEDICARE, SELFPAY ==
[2020-04-26 13:02] LABS: Basophils % 0.7 % (0.1-2.0); Eosinophils # 0.1 K/mm3 (0.0-0.4); Eosinophils % 2.1 % (0.1-12.0); Hemoglobin 15.1 g/dL (14.1-18.0); Lymphocytes # 1.6 K/mm3 (0.7-4.5); Lymphocytes % 25.5 % (10-50); Mean Corpuscular HGB Conc 32.1 g/dL (31.8-35.4); Mean Corpuscular Hemoglobin 30.7 pg (27.0-31.2); Mean Corpuscular Volume 95.6 fl (80-94); Mean Platelet Volume 6.8 fl (7.4-10.4); Monocytes # 0.4 K/mm3 (0.1-1.0); Monocytes % 6.3 % (1.7-9.3); Neutrophils % 65.4 % (37.0-80.0); Platelet Count 196 K/mm3 (142-424); Red Blood Count 4.92 M/mm3 (4.60-6.20); Red Cell Distribution Width 13.5 % (11.5-17.5); White Blood Count 6.1 K/mm3 (4.8-10.8)
[2020-04-26 13:05] LABS: Hemoglobin A1C 6.7 % (4.0-6.0)
[2020-04-26 13:23] LABS: Alanine Aminotransferase 15 U/L (12-78); Albumin Level 4.5 g/dl (3.5-5.0); Albumin/Globulin Ratio 1.4 (1.1-1.8); Alkaline Phosphatase 101 U/L (38-126); Anion Gap 10.2 mEq/L (5-15); Aspartate Amino Transferase 27 U/L (17-59); Bilirubin,Total 1.1 mg/dl (0.2-1.3); Blood Urea Nitrogen 18 mg/dl (9-20); Calcium 10.4 mg/dl (8.4-10.2); Carbon Dioxide 35 mmol/L (22.0-30.0); Chloride 100 mmol/L (98-107); Chol/HDL Ratio 2.7 (1-3.5); Cholesterol 146 mg/dl (140-200); Estimated Glomerular Filt Rate 72 ml/min (>60); GFR (African American) 88 ML/MIN (>60); Globulin 3.2 g/dL (1.3-3.2); Glucose 164 mg/dl (74-100); HDL Cholesterol 55 mg/dl (40-60); Potassium 4.2 mmoL/L (3.5-5.1); Sodium 141 mmol/L (136-145); Total Protein,Serum 7.7 g/dl (6.3-8.2); Triglycerides 187 mg/dl (30-150); VLDL Cholesterol 37 mg/dL (0-40)
[2020-04-26 13:40] LABS: Direct LDL Cholesterol 32.21 mg/dL (100-129)
[2020-04-26 14:14] LABS: Vitamin B12 > 1000 pg/mL (239-931)
[2020-04-27 10:13] LABS: 25-OH Vitamin D, Total 15.6 ng/mL (30-100)
== END ==
PROVIDERS: Visit Provider Nurse Practitioner Family
DX: E11.9 Type 2 diabetes mellitus without complications (principal); E78.5 Hyperlipidemia, unspecified; E53.8 Deficiency of other specified B group vitamins; I10 Essential (primary) hypertension; Z79.4 Long term (current) use of insulin; E55.9 Vitamin D deficiency, unspecified
CPT/HCPCS: 36415; 80053; 80061; 82306; 82607; 83036; 85025

== ENCOUNTER → 2020-10-10 10:01 | Outpatient (CLI) | payer MEDICARE, SELFPAY ==
--- NOTE | 2020-10-10 10:02 | CA_ITS ---
APPROVED REPORT EXAM: Comprehensive 2D, Doppler, and color-flow Echocardiogram Oiler Bander: Cee Anderson RT(R) Ht: 5 ft 7 in Wt: 158lbs BSA: 1.83 BP: 169/79 mmHg Indications: HTN, DM, ex smoker, hyperlipidemia, , RBBB, abn EKG, CAD 2D Dimensions LVOT 2.00 cm (M/F) 1.5-2.5 LA Volume 38.50 mL LA Volume Index 21.03 mL/m2 (M/F) 16-34 M-Mode Dimensions RVDd 2.56 cm (0.9-2.6) LA Diam 4.24 cm (1.9-4.0) LVDd 3.72 cm (3.5-5.7) Ao Diam 2.20 cm (2.0-3.7) LVDs 2.75 cm (3.5-5.7) IVSd 0.75 cm (0.6-1.1) PWd 0.78 cm (0.6-1.1) EF (Teich) 52.00% FS 26.10% EDV (Teich) 58.90 mL ESV (Teich) 28.30 mL LV Diastology E Decel Time 283.00 (160-240 msec) E/A Ratio 0.54 MED E' 4.90 (< 7 cm/sec) E'/MED E' Ratio 13.20 (>14) LAT E' 6.20 (<10 cm/sec) E/LAT E' Ratio 10.44 (>14) Aortic Valve LVOT Max 104.00 (70-110 cm/s) LVOT VTI 21.59 cm AoV Peak Deshawn. 540.00 (50-130 cm/s) AO Peak GR. 117.00 mmHg AO Mean GR. 57.30 (<5 mmHg) AO VTI 100.77 (18-25 cm) KIT (VTI) 0.67 (2.5-4.5 cm2) Mitral Valve MV A Velocity 121.00 (40-130 cm/s) E/A Ratio 0.54 MV Decel. Time 283.00 (160-240 ms) Left Ventricle Left atrium is moderately enlarged, left ventricle is normal size, mild concentric left ventricular hypertrophy, visually estimated ejection fraction 55% with no regional wall motion abnormality, grade 1 diastolic dysfunction seen without tissue Doppler evidence of raise left atrial pressure. Right Ventricle Right atrium and right ventricle are normal size and contractility. Aortic Valve Aortic valve is thickened and calcified with severe restriction in the leaflet mobility, mean gradient across valve is 55 mmHg, valve area is 0.67 cm??? represents severe aortic stenosis, there is no significant aortic insufficiency. Mitral Valve Mitral valve is dense mitral annular calcification which extends into both anterior and posterior mitral leaflet, mitral inflow velocity is not indicated above any significant mitral inflow obstruction, there is mild mitral regurgitation. Tricuspid Valve Tricuspid valve leaflets are minimally thickened, there is mild tricuspid regurgitation, tricuspid regurgitation jet velocity is inadequate for Calculation of the right ventricular systolic pressure. Pulmonic Valve Pulmonic valve is poorly visualized. Great Vessels Aortic root is normal size. Pericardium No significant pericardial effusion noted. Conclusion 1. Moderately enlarged left atrium, normal left ventricular size, mild concentric left ventricular hypertrophy, visually estimated ejection fraction 55% with no regional wall motion abnormality, grade 1 diastolic dysfunction seen without tissue Doppler evidence of raise left atrial pressure. 2. Thickened and calcified aortic valve with severe aortic stenosis, valve area is 0.67 cm???, there is no significant aortic insufficiency. 3. Mild mitral and tricuspid regurgitation. 4. No significant pericardial effusion noted. Electronically signed by : Karthikeyan Zuniga, 10/11/2020 14:14:01
--- NOTE | 2020-10-10 10:02 | CA_ITS ---
APPROVED REPORT Roastmaster: LAURA Laterality: Bilateral Study Quality: Excellent Indications: TONY, aortic stenosis, HTN, HLD, DM, CAD, Ex-smoker Risk Factors Hypertension: Hyperlipidemia Diabetes CAD, Diabetes, Smoking Doppler Spectral Velocity Analysis ECA (R) 85.40/9.60 cm/s ECA (L) 89.90/5.80 cm/s dICA (R) 71.30/18.00 cm/s dICA (L) 51.40/12.20 cm/s Lincoln (R) 68.10/15.40 cm/s Lincoln (L) 78.30/16.10 cm/s pICA (R) 87.30/14.80 cm/s pICA (L) 97.00/14.10 cm/s dCCA (R) 75.10/12.80 cm/s dCCA (L) 70.00/12.80 cm/s pCCA (R) 73.80/10.90 cm/s pCCA (L) 79.00/11.60 cm/s Vert (R) 49.40/14.80 cm/s Vert (L) 23.10/5.10 cm/s ICA/CCA 1.16 ICA/CCA 1.39 Findings Duplex evaluation demonstrates stenosis of the right proximal internal carotid artery in the range of 20-49%. Duplex evaluation demonstrates antegrade flow of the bilateral Vertebral Arteries. Duplex evaluation demonstrates stenosis of the left proximal internal carotid artery in the range of 20-49%. B-Mode Ultrasound demonstrates moderate intraluminal plaque in the bilateral internal Carotid Arteries. Conclusion Duplex evaluation demonstrates stenosis of the right proximal internal carotid artery in the range of 20-49%. Duplex evaluation demonstrates antegrade flow of the bilateral Vertebral Arteries. Duplex evaluation demonstrates stenosis of the left proximal internal carotid artery in the range of 20-49%. B-Mode Ultrasound demonstrates moderate intraluminal plaque in the bilateral internal Carotid Arteries. Electronically signed by : Chelsea Dejesus, 10/12/2020 11:50:18
== END ==
PROVIDERS: PCP Nurse Practitioner Family; Visit Provider Internal Medicine Cardiovascular Disease
DX: E11.8 Type 2 diabetes mellitus with unspecified complications (principal); E78.2 Mixed hyperlipidemia; I10 Essential (primary) hypertension; I35.0 Nonrheumatic aortic (valve) stenosis; I45.10 Unspecified right bundle-branch block; I65.23 Occlusion and stenosis of bilateral carotid arteries; I73.9 Peripheral vascular disease, unspecified; R09.89 Other specified symptoms and signs involving the circulatory and respiratory systems; R94.31 Abnormal electrocardiogram [ECG] [EKG]; Z95.5 Presence of coronary angioplasty implant and graft; Z79.4 Long term (current) use of insulin
CPT/HCPCS: 93306; 93880

== ENCOUNTER → 2020-10-26 10:38 | Outpatient (CLI) | payer MEDICARE, SELFPAY | PROVIDERS: Visit Provider Urology | DX: C67.9 Malignant neoplasm of bladder, unspecified (principal); Z20.822 Contact with and (suspected) exposure to COVID-19; Z01.812 Encounter for preprocedural laboratory examination | CPT/HCPCS: U0003 ==

== ENCOUNTER 2020-10-29 07:51 | Day surgery (SDC) | payer MEDICARE, SELFPAY ==
[2020-10-24 13:39] VITALS: BMI 23.6
[2020-10-29 08:09] VITALS: BP 165/74; PULSE 60; RESP 18; TEMP 36.4; O2SAT 94
[2020-10-29 08:20] LABS: POC Glucose,Bedside 232 (70-110)
[2020-10-29 09:42] VITALS: BP 191/79; PULSE 60; RESP 18; TEMP 36.3; O2SAT 94
[2020-10-29 09:50] VITALS: BP 191/79; PULSE 60; RESP 18; O2SAT 94
--- NOTE | 2020-10-29 13:57 | HMH.OPNOTE ---
Date of procedure: 10/29/20 Pre-op Diagnosis:: History of bladder cancer, urinary incontinence Post-op Diagnosis:: History of bladder cancer, urinary incontinence Procedure performed:: Surveillance cystoscopy Surgeon:: Chucky Britton MD Anesthesia: local Estimated blood loss (mL): 0 Clinical Note:: Patient is a 80-year-old white male with history of the dementia and distant history of a bladder cancer. He returns today for surveillance cystoscopy. His states that his urinary incontinence has worsened over the past 6 months and states he is wearing about 3 pull-ups a day. She states he has no warning when he is going to go. He also has some fecal incontinence as well. Operative findings:: There was no evidence of bladder tumor recurrence. There is no evidence of chronic bladder outlet obstructive changes. Prostate was moderately enlarged. Operative note:: Patient taken to the cystoscopy suite after informed consent was obtained. On the stretcher he was prepped and draped in the standard surgical fashion and 2% lidocaine placed into the urethra and clamped for 5 minutes. After 5 minutes the flexible cystoscope introduced into the urethral meatus and passed to the prostatic urethra which showed some moderate hyperplasia. The bladder was entered and examined in a systematic fashion. Some mild trabeculation was present but no cellules, diverticula or recurrence of bladder tumors were noted. The ureteral orifices in their normal anatomic position with clear efflux of urine. The scope was retroflexed showing a moderate sized median lobe. Scope then removed. The patient tolerated the procedure well there are no complications. I discussed the findings with the patient's and she was informed that there was no evidence of recurrent bladder tumors. As far as his incontinence I think is more related to his dementia as he has fecal and urinary incontinence. We discussed timed voiding to minimize the incontinent episodes. He is also difficult to to get up and ambulate and we discussed bedside urinal's portable toilet. Condition: stable Disposition: same day Specimens:: None Complications:: None
== END 2020-10-29 09:50 | disposition home or self-care (01) ==
LOC: OUTP 07:54
PROVIDERS: PCP Nurse Practitioner Family; Visit Provider Urology
DX: R32 Unspecified urinary incontinence (principal); Z85.51 Personal history of malignant neoplasm of bladder; Z90.6 Acquired absence of other parts of urinary tract; Z87.891 Personal history of nicotine dependence; E78.5 Hyperlipidemia, unspecified; I10 Essential (primary) hypertension; I73.9 Peripheral vascular disease, unspecified; E11.9 Type 2 diabetes mellitus without complications; R01.1 Cardiac murmur, unspecified; Z82.49 Family history of ischemic heart disease and other diseases of the circulatory system; Z95.5 Presence of coronary angioplasty implant and graft
CPT/HCPCS: 52000; 82962

== ENCOUNTER → 2020-11-09 10:12 | Outpatient (CLI) | payer MEDICARE, SELFPAY ==
[2020-11-09 10:48] LABS: Basophils # 0.1 K/mm3 (0-0.2); Eosinophils # 0.2 K/mm3 (0.0-0.4); Eosinophils % 3.6 % (0.1-12.0); Hematocrit 45.8 % (42.0-52.0); Hemoglobin 15.3 g/dL (14.1-18.0); Lymphocytes # 2.1 K/mm3 (0.7-4.5); Lymphocytes % 31.1 % (10-50); Mean Corpuscular HGB Conc 33.5 g/dL (31.8-35.4); Mean Corpuscular Hemoglobin 30.3 pg (27.0-31.2); Mean Corpuscular Volume 90.6 fl (80-94); Monocytes # 0.5 K/mm3 (0.1-1.0); Monocytes % 7.3 % (1.7-9.3); Neutrophils # 3.8 K/mm3 (1.8-7.8); Platelet Count 236 K/mm3 (142-424); Red Blood Count 5.05 M/mm3 (4.60-6.20); Red Cell Distribution Width 13.5 % (11.5-17.5); White Blood Count 6.7 K/mm3 (4.8-10.8)
[2020-11-09 11:03] LABS: Hemoglobin A1C 8.8 % (4.0-6.0)
[2020-11-09 11:32] LABS: Alanine Aminotransferase 15 U/L (12-78); Albumin/Globulin Ratio 1.4 (1.1-1.8); Alkaline Phosphatase 100 U/L (38-126); Anion Gap 13.3 mEq/L (5-15); Aspartate Amino Transferase 23 U/L (17-59); Bilirubin,Total 0.7 mg/dl (0.2-1.3); Blood Urea Nitrogen 29 mg/dl (9-20); Calcium 9.9 mg/dl (8.4-10.2); Carbon Dioxide 33 mmol/L (22.0-30.0); Chloride 101 mmol/L (98-107); Cholesterol 129 mg/dl (140-200); Estimated Glomerular Filt Rate 59 ml/min (>60); GFR (African American) 71 ML/MIN (>60); Globulin 2.9 g/dL (1.3-3.2); Glucose 181 mg/dl (74-100); HDL Cholesterol 43 mg/dl (40-60); Potassium 4.3 mmoL/L (3.5-5.1); Sodium 143 mmol/L (136-145); Total Protein,Serum 6.9 g/dl (6.3-8.2); Triglycerides 140 mg/dl (30-150); VLDL Cholesterol 28 mg/dL (0-40)
[2020-11-09 11:49] LABS: 25-OH Vitamin D, Total 44.4 ng/mL (30-100)
[2020-11-09 12:24] LABS: Vitamin B12 > 1000 pg/mL (239-931)
== END ==
PROVIDERS: Visit Provider Nurse Practitioner Family
DX: E11.65 Type 2 diabetes mellitus with hyperglycemia (principal); I65.23 Occlusion and stenosis of bilateral carotid arteries; E53.8 Deficiency of other specified B group vitamins; Z79.4 Long term (current) use of insulin; E55.9 Vitamin D deficiency, unspecified
CPT/HCPCS: 36415; 80053; 80061; 82306; 82607; 83036; 85025

== ENCOUNTER 2021-02-12 10:00 | Emergency (ER) | payer MEDICARE, SELFPAY ==
[2021-02-12] VITALS (8 sets, daily range): BP systolic 127–145; BP diastolic 60–74; PULSE 53–78; RESP 16–18; TEMP 36.6–36.9; O2SAT 92–98; BMI 25.0
[2021-02-12 11:53] LABS: Chloride 103 mmol/L (98-107); Potassium 3.9 mmoL/L (3.5-5.1); Sodium 141 mmol/L (136-145)
[2021-02-12 11:54] LABS: Basophils % 0.5 % (0.1-2.0); Eosinophils # 0.2 K/mm3 (0.0-0.4); Eosinophils % 2.8 % (0.1-12.0); Hematocrit 46.8 % (42.0-52.0); Hemoglobin 15.5 g/dL (14.1-18.0); Lymphocytes # 1.9 K/mm3 (0.7-4.5); Lymphocytes % 25.2 % (10-50); Mean Corpuscular HGB Conc 33.2 g/dL (31.8-35.4); Mean Corpuscular Hemoglobin 30.3 pg (27.0-31.2); Mean Corpuscular Volume 91.3 fl (80-94); Monocytes # 0.6 K/mm3 (0.1-1.0); Neutrophils # 4.8 K/mm3 (1.8-7.8); Neutrophils % 63.4 % (37.0-80.0); Platelet Count 185 K/mm3 (142-424); Red Blood Count 5.12 M/mm3 (4.60-6.20); White Blood Count 7.5 K/mm3 (4.8-10.8)
--- NOTE | 2021-02-12 11:55 | ECG_ITS ---
APPROVED REPORT Exam: Resting ECG HR:53 bpm ECG Measurements Heart Rate 53 AXES WV 284 P 40 QRSd 144 QRS 251 QT 428 T -25 QTc 401 Conclusion Sinus bradycardia with 1st degree AV block Right bundle branch block Abnormal ECG Electronically signed by : Isac Rodriguez MD 02/12/2021 20:00:54
[2021-02-12 11:56] LABS: Alanine Aminotransferase 17 U/L (12-78); Albumin Level 3.9 g/dl (3.5-5.0); Albumin/Globulin Ratio 1.4 (1.1-1.8); Alkaline Phosphatase 78 U/L (38-126); Anion Gap 6.9 mEq/L (5-15); Aspartate Amino Transferase 33 U/L (17-59); Bilirubin,Total 0.7 mg/dl (0.2-1.3); Blood Urea Nitrogen 22 mg/dl (9-20); Carbon Dioxide 35 mmol/L (22.0-30.0); Creatinine Clearance Estimated 48 mL/min (50-200); Estimated Glomerular Filt Rate 53 ml/min (>60); GFR (African American) 65 ML/MIN (>60); Globulin 2.8 g/dL (1.3-3.2); Total Protein,Serum 6.7 g/dl (6.3-8.2)
[2021-02-12 11:57] LABS: Calcium 9.6 mg/dl (8.4-10.2); Glucose 126 mg/dl (74-100)
[2021-02-12 12:09] LABS: Troponin I 0.03 ng/ml (0.00-0.034)
--- NOTE | 2021-02-12 12:11 | HMH.EDGENADL ---
ED Disposition Clinical Impression: Physical deconditioning Disposition: Home, Self-Care Condition on Discharge: Good Additional Instructions: Please follow up with your primary care physician in 2-3 days for further management. You have also been provided a referral to home health for PT/OT and physical strengthening. Please use a walker when walking and take care when walking up stairs or elevated heights. Please keep your appointment and return if symptoms do not improve. Referrals: Leonarda Trinh APRN [Primary Care Provider] - Time of Disposition: 15:30 - Critical Care Critical Care Time: No Attestation: On 02/12/21, the high probability of a clinically significant, sudden or life threatening deterioration of the following system(s) required my full and direct attention, intervention and personal management. The time I documented below is in addition to time spent performing reported procedures but includes the following listed in this critical care notation. Medical Decision Making - Medical Records Medical records reviewed: Yes: I reviewed the patient's medical records. - Timo Inquiry Pt receiving controlled substance: No Vital Signs: 02/12/21 10:01 02/12/21 10:03 02/12/21 10:30 Temperature 97.8 F Temperature Source Oral Pulse Rate 58 L 56 L Pulse Rate [Radial] 59 L Respiratory Rate 16 Blood Pressure Blood Pressure [Right Arm] 142/66 H Blood Pressure Mean Blood Pressure Mean [Right Arm] 91 Blood Pressure Position 02 Sat by Pulse Oximetry 93 L 92 L 93 L Oxygen Delivery Method Room Air 02/12/21 11:00 02/12/21 11:30 02/12/21 12:00 Temperature Temperature Source Pulse Rate 57 L 59 L 59 L Pulse Rate [Radial] Respiratory Rate Blood Pressure 128/66 132/64 Blood Pressure [Right Arm] Blood Pressure Mean 76 Blood Pressure Mean [Right Arm] Blood Pressure Position 02 Sat by Pulse Oximetry 95 94 L 92 L Oxygen Delivery Method 02/12/21 12:30 02/12/21 15:53 Temperature 98.5 F Temperature Source Oral Pulse Rate 53 L 78 Pulse Rate [Radial] Respiratory Rate 18 Blood Pressure 127/60 145/74 H Blood Pressure [Right Arm] Blood Pressure Mean 73 Blood Pressure Mean [Right Arm] Blood Pressure Position Sitting 02 Sat by Pulse Oximetry 96 Oxygen Delivery Method Room Air - Lab Data Lab Results 02/12/21 11:38: WBC 7.5, RBC 5.12, Hgb 15.5, Hct 46.8, MCV 91.3, MCH 30.3, MCHC 33.2, RDW 14.0, Plt Count 185, MPV 8.0, Neut % (Auto) 63.4, Lymph % (Auto) 25.2, Sanborn % (Auto) 8.0, Eos % (Auto) 2.8, Baso % (Auto) 0.5, Neut # (Auto) 4.8, Lymph # (Auto) 1.9, Sanborn # (Auto) 0.6, Eos # (Auto) 0.2, Baso # (Auto) 0.0 02/12/21 11:38: Sodium 141, Potassium 3.9, Chloride 103, Carbon Dioxide 35 H, Anion Gap 6.9, BUN 22 H, Creatinine 1.30 H, Estimated Creat Clear 48, Estimated GFR 53 L, Est GFR ( Amer) 65, Glucose 126 H, Calcium 9.6, Total Bilirubin 0.7, AST 33, ALT 17, Alkaline Phosphatase 78, Troponin I 0.03, Total Protein 6.7, Albumin 3.9, Globulin 2.8, Albumin/Globulin Ratio 1.4, TSH 1.21 02/12/21 11:38: Free T4 1.08 Result diagrams: 02/12/21 11:38 02/12/21 11:38 Orders (Tests/Meds): ED MEDICATIONS Discontinued Medications Generic Name Dose Route Start Last Admin Trade Name Freq PRN Reason Stop Dose Admin Sodium Chloride 1,000 mls @ 999 mls/hr 02/12/21 11:30 02/12/21 11:44 Sod Chlor 0.9% 1000ml Bag IV 02/12/21 12:30 999 mls/hr .Q1H1M WENDY Administration ORDERS Category Date Time Status Care Management Consult [Consult to Case Management] [ Cons 02/12/21 14:43 Active CONS] Routine Medical Decision Narrative: Mr. Rodríguez is a 80 yo male w/ multiple comorbidities including claudication, aortic stenosis, HLD, HTN, uncontrolled T2DM non insulin dependent who presents to the ED for BLE weakness. Patient is afebrile and hemodynamically stable. He denies any back pain or inciting trauma. No red flag signs. No foc
[2021-02-12 12:18] LABS: Free T4 (Free Thyroxine) 1.08 ng/dl (0.78-2.19)
[2021-02-12 12:27] LABS: Thyroid Stimulating Hormone 1.21 uIU/mL (0.465-4.68)
--- NOTE | 2021-02-12 14:12 | PC.NURSE ---
CARE MANAGEMENT CAME DOWN TO SPEAK WITH PT AND THEY HAVE DECIDED THEY DO NOT WANT PLACEMENT AT THIS TIME THEY ARE GOING TO GET PT/OT EVAL AND THEY ARE GONNA SET UP HOME HEALTH AND IF THEY DECIDE THEY WANT PLACEMENT LATER THEY ARE GONNA CALL BACK
--- NOTE | 2021-02-12 14:25 | PC.NURSE ---
DIETARY NOTIFIED FOR LUNCH TRAYS
--- NOTE | 2021-02-12 14:26 | SW/DCPLANNER ---
Addendum entered by Magda Shanks 02/13/21 06:48: SET UP HOME HEALTH SERVICES FOR THIS PATIENT THIS MORNING TO ATTEMPT TO BE SEEN SOON POSSIBLE.. PATIENT HAS USED [facility] IN THE PAST AND WILL USE THEIR SERVICES AGAIN.. WILL FOLLOW UP TO ENSURE HOME HEALTH GETS STARTED... Original Note: I spoke with patient and his regarding home situation and discharge plans. stated that they have steps to get in home and patient is having trouble ambulating. ED MD stated that patient does not have a medical reason to be admitted today. PT/OT evaluation has been ordered in ED. I have explained to patient and his a few different options: return home with home health and a sitters list OR to consider SNF level of care for a short period of time. engaged in lengthy conversation with patient and the decision was made to return home with [facility] I also provided with a private sitters list along with my contact information if she felt placement was needed in the future. verified that she felt safe returning home with this patient today. Once PT/OT evaluation is completed [facility]
--- NOTE | 2021-02-12 15:50 | HMH.OTEV ---
OT Inpatient Evaluation Rehab OT IP Evaluation Start: 02/12/21 13:54 Freq: ONCE Status: Complete Protocol: Document 02/12/21 15:41 [facility] (Rec: 02/12/21 15:49 [facility] [id number]) Rehab OT IP Assessment Subjective History Pt is oriented x 2 on arrival. Pt's present and supportive of evaluation. Pt agreeable to engage in therapy evaluation. Pt presented to ER due to bilateral Lower leg pain starting yesterday. Pt's also reports he was extremely off balance and weak as well; having difficulty ambulating. Pt has a past medical history of Anxiety, Carotid Stenosis, Coronary Artery Disease, Dementia, Depression, Diabetes Mellitus Type 2, Hyperlipidemia, Hypertension, Kidney Stones, Peripheral Artery Disease, Peripheral Vascular Disease, Valvular Heart Disease. Pt reports prior to becoming weak the past two days he is normally able to complete all ADLs and IADLs independently. Pt did not use walker or cane during ambulation prior. Subjective Yes I can do this. Objective Patient Orientation Person,Birthday Upper Extremity Gross ROM Min Limitation <25% Shoulder ROM Limitations Muscle Weakness Elbow ROM Limitations Muscle Weakness Wrist Limitations of Range of Motion Muscle Weakness Bed Mobility bed mobility-scooting,bed mobility - supine/sit,bed mobility - rolling Assist Level Supervision/Stand by Transfer Training Sit/Stand Transfer Assist Level Supervision/Stand by Rehab OT IP prob,goals,plan Problems Date of Evaluation: 02/12/21 Rehab Potential Rehab Potential Innapropriate for Skilled Therapy Discharge Plan OT Discharge Plan At this time patient is being discharged home with his . Therapist does recommend patient be evaluated with Home health for PT and OT services
--- NOTE | 2021-02-12 15:59 | HMH.PTEV ---
Physical Therapy Evaluation Rehab PT IP Evaluation Start: 02/12/21 13:54 Freq: ONCE Status: Discharge Protocol: Document 02/12/21 15:06 [facility] (Rec: 02/12/21 15:59 [facility] [id number]) Subjective/History History History Pt admitted to ED from home by w/ c/o weakness and BLE pain. Pt has dementia, poorly controlled diabetes, and significantly decreased circulation in BLE. Subjective Subjective Pt reports he has no problems and feels better than he did earlier. Rehab PT IP Eval Objective Appearance Patient Behavior Appropriate,Cooperative Difficulty following instructions none Speech Pattern Appropriate Ambulation Patient Able to Ambulate Yes Ambulation Observation IP General Gait Pattern Observation Wide Based Gait,Shuffling Step Ambulation Distance (feet) 20 Ambulation Assistive Device None Ambulation Ability Supervision/Stand by Balance Ability to Arise Able, uses arms to help Sitting Balance Steady, safe Standing Balance Steady, wide stance Dynamic Sitting Balance Ability Good Dynamic Standing Balance Ability Fair Transfers Bed Transfer Ability Independent Sit to Stand Bed Transfer Ability Independent Rehab PT IP prob,goals,plan Problems Date of Evaluation: 02/12/21 Rehab Potential Rehab Potential Good Discharge Plan PT Discharge Plan pt to be dc'd to home. Pt will benefit from skilled therapy to increase level of function and ease burden of care at home. G -code Required Yes G Codes PT Current Status Self Care PT Current Status Modifier CK-At least 40% but less than 60% impaired, limited or restricted PT Goal Status Self Care PT Goal Status Modifer CK-At least 40% but less than 60% impaired, limited or restricted PHYSICIAN CERTIFICATION: I certify the specified therapy services for Steven Rodríguez are required, authorized, and reviewed every 30 days.
== END 2021-02-12 15:55 | disposition home or self-care (01) ==
PROVIDERS: Emergency Provider Student in an Organized Health Care Education/Training Program; PCP Nurse Practitioner Family
DX: I70.213 Atherosclerosis of native arteries of extremities with intermittent claudication, bilateral legs (principal); R53.81 Other malaise; I10 Essential (primary) hypertension; E78.5 Hyperlipidemia, unspecified; E11.9 Type 2 diabetes mellitus without complications; F41.8 Other specified anxiety disorders; Z79.899 Other long term (current) drug therapy
CPT/HCPCS: 80053; 84439; 84443; 84484; 85025; 93005; 96365; 99283

== ENCOUNTER → 2021-04-18 11:10 | Outpatient (CLI) | payer MEDICARE, SELFPAY ==
[2021-04-19 13:38] LABS: Covid-19 Nasal PCR Sendout Lex NOT DETECTED
== END ==
PROVIDERS: Visit Provider Nurse Practitioner
DX: Z20.822 Contact with and (suspected) exposure to COVID-19 (principal)
CPT/HCPCS: C9803; U0004; U0005

== ENCOUNTER 2021-08-16 19:31 | Emergency (ER) | payer MEDICARE, SELFPAY ==
--- NOTE | 2021-08-16 19:39 | XR_ITS ---
PROCEDURE INFORMATION: Exam: XR Right Shoulder Exam date and time: 08/16/2021 7:39 PM Age: 80 years old Clinical indication: Pain; Shoulder; Right TECHNIQUE: Imaging protocol: XR Right shoulder. Views: 2 or more views. COMPARISON: CT CHEST W CON 10/11/2019 10:12 AM FINDINGS: Bones/joints: Moderately severe AC joint arthrosis. Ambp-dm-kexrbwls glenohumeral arthropathy. Calcification near the greater tuberosity compatible with chronic calcific cuff arthropathy. Downsloping acromion with somewhat narrowed subacromial space. No acute fracture or dislocation. Soft tissues: Normal. IMPRESSION: No acute osseous abnormality. Chronic changes described above.
[2021-08-16 20:45] VITALS: PULSE 76; RESP 16; TEMP 36.6; O2SAT 98; BMI 25.8
--- NOTE | 2021-08-16 21:14 | HMH.EDUTC ---
[facility] [place] Clinical Impression: Shoulder pain Qualifiers: Chronicity: unspecified Laterality: right Qualified Code(s): M25.511 - Pain in right shoulder Disposition: Home, Self-Care Condition on Discharge: Good Instructions: DI for Shoulder Pain, Ibuprofen, Acetaminophen (Alternative Therapy) Additional Instructions: *Ibuprofen jose 6 hours with meal as needed for pain/inflammation if you can take it *Not additional anti-inflammatory like motrin, aleve, advil with the above amount of ibuprofen. You can still take Tylenol every 4 hours as needed if you need something else for pain *Ice 20 minutes every 2 hours for the first 48 hours after the initial injury followed by moist heat every 20 minutes 3-4 times a day to affected area Over the counter muscle rubs or patches on shoulder may help with discomfort *Keep this area active, no movement leads to more stiffness, However take it easy and avoid heavy lifting pushing or pulling *Follow up with you family doctor if no improvement for further treatment Referrals: Leonarda Trinh APRN [Primary Care Provider] - As needed Time of Disposition: 21:46 Medical Decision Making - Timo Inquiry Pt receiving controlled substance: No Timo was queried for this patient: No Vital Signs: 08/16/21 20:45 08/16/21 21:33 Temperature 97.8 F 97.8 F Temperature Source Oral Pulse Rate 76 Pulse Rate [Right Brachial] 76 Respiratory Rate 16 16 Blood Pressure 0/0 L 02 Sat by Pulse Oximetry 98 Oxygen Delivery Method Room Air - Radiology Data #1 Image(s): Shoulder Image Reviewed: Yes I have reviewed radiologist's interpretation IMPRESSION: No acute osseous abnormality. Chronic changes described above. [facility] [place] - General Stated complaint: R Shouldere Pain Time Seen by Provider: 08/16/21 21:00 Mode of Arrival: Ambulatory Source of Information: Patient Limitations: No Limitations Description of Symptoms (Recalled from Triage Doc. by RN): PATIENT C/O PAIN TO RIGHT SHOULDER THAT STARTED THIS AFTERNOON. NO KNOWN INJURY HEENT Symptoms (Recalled from RN notes): No Resp Symptoms (Recalled from RN notes): No Skin Symptoms (Recalled from RN notes): No MS Symptoms (Recalled from RN notes): Yes Functional Status (Recalled from RN notes): WNL - History of Present Illness Provider Complaint: Patient states that the muscle in his shoulder hurts States that started this afternoon he is able to move it around but hurts at times when he raises his arm Denies known injury states that when he was complaining she brought him in to get him checked - Related Data Home Medications Medication Instructions Recorded Confirmed aspirin 325 mg tablet 325 mg PO .qday tab 04/28/17 02/22/21 cilostazol 100 mg tablet 100 mg PO BID 04/28/17 02/22/21 pravastatin 40 mg tablet 40 mg PO QHS 04/28/17 02/22/21 diltiazem HCl 180 mg 180 mg PO BID 90 Days #180 cap 10/06/17 02/22/21 capsule,extended release 24 hr lisinopril 20 1 tab PO BID 90 Days #180 tab 10/06/17 02/22/21 mg-hydrochlorothiazide 12.5 mg tablet memantine ER 28 mg-donepezil 10 mg 1 cap PO Q24H 90 Days each 10/06/17 02/22/21 capsule sprinkle,ext.release 24 hr potassium chloride 10 mEq 10 meq PO DAILY tab 04/08/19 02/22/21 tablet,extended release cyanocobalamin (vitamin B-12) 1,000 mcg IM QMONTH ml 10/07/19 02/22/21 1,000 mcg/mL injection solution insulin glargine 100 unit/mL (3 25 unit SUB-Q DAILY 90 Days #22.5 10/07/19 02/22/21 mL) subcutaneous pen ml ergocalciferol (vitamin D2) 1,250 1,250 mcg PO WEEKLY cap 10/05/20 02/22/21 mcg (50,000 unit) capsule empagliflozin 10 mg tablet 25 mg PO DAILY tab 02/22/21 02/22/21 Previous Rx's Medication Instructions Recorded omeprazole 20 mg capsule,delayed See Rx Instructions .ROUTE 04/29/21 release .COMPLEX #30 cap Allergies Allergy/AdvReac Type Severity Reaction Status Date / Time No Known Drug Allergies Allergy Unknown Verified 02/22/21 09:42
[2021-08-16 21:33] VITALS: BP 0/0; PULSE 76; RESP 16; TEMP 36.6; O2SAT 98
== END 2021-08-16 21:49 | disposition home or self-care (01) ==
PROVIDERS: Emergency Provider Nurse Practitioner; PCP Nurse Practitioner Family
DX: M25.511 Pain in right shoulder (principal)
CPT/HCPCS: 73030; 99212; G0463

== ENCOUNTER → 2021-10-25 10:29 | Outpatient (CLI) | payer MEDICARE, SELFPAY | PROVIDERS: PCP Nurse Practitioner Family; Visit Provider Urology | DX: C67.9 Malignant neoplasm of bladder, unspecified (principal); Z01.812 Encounter for preprocedural laboratory examination; Z20.822 Contact with and (suspected) exposure to COVID-19 | CPT/HCPCS: C9803; U0003; U0005 ==

== ENCOUNTER 2021-10-28 07:59 | Day surgery (SDC) | payer MEDICARE, SELFPAY ==
[2021-10-24 10:50] VITALS: BMI 26.1
[2021-10-28 08:15] VITALS: BP 143/60; PULSE 58; RESP 17; TEMP 36.2; O2SAT 95
[2021-10-28 08:31] LABS: POC Glucose,Bedside 100 (70-110)
[2021-10-28 10:45] VITALS: BP 149/70; PULSE 56; RESP 18; TEMP 36.2; O2SAT 92
--- NOTE | 2021-10-28 10:53 | PC.NURSE ---
Lab at bedside for blood work.
--- NOTE | 2021-10-28 10:54 | HMH.OPNOTE ---
Date of procedure: 10/28/21 Pre-op Diagnosis:: History of bladder cancer Post-op Diagnosis:: History of bladder cancer without evidence of recurrence today. Procedure performed:: Surveillance cystoscopy Surgeon:: Chucky Britton MD Anesthesia: local Estimated blood loss (mL): 0 Clinical Note:: 81-year-old white male with a distant history of bladder cancer returns for surveillance cystoscopy. He does have a history of dementia and urinary incontinence. He also has history of elevated PSA. His denies any gross hematuria. Operative findings:: No evidence of bladder tumor recurrence today. There is some prostate enlargement. Operative note:: Patient taken to the cystoscopy suite after informed consent was obtained. On the stretcher he was prepped and draped in the standard surgical fashion and 2% lidocaine placed into the urethra and clamped for 5 minutes. After 5 minutes the clamp was removed and the flexible cystoscope introduced into the urethral meatus. Passed to the prostatic urethra which showed by lobar hyperplasia. The bladder was entered and examined in a systematic fashion. There is no evidence of bladder tumor recurrence lower other mucosal abnormalities. The ureteral orifices in their normal anatomic position with clear efflux of urine. Scope was retroflexed showing a small median lobe. Scope then removed and patient tolerated well. We will see him back in 1 year with surveillance cystoscopy. Condition: stable Disposition: same day Specimens:: None Complications:: None
[2021-10-28 10:55] VITALS: BP 149/70; PULSE 56; RESP 18; O2SAT 92
[2021-10-29 08:18] LABS: PSA, Free 2.66 ng/mL; Prostate Specific Ag 12.1 ng/mL (0.0-4.0)
== END 2021-10-28 10:53 | disposition home or self-care (01) ==
LOC: OUTP 08:02
PROVIDERS: PCP Nurse Practitioner Family; Visit Provider Urology
DX: Z85.51 Personal history of malignant neoplasm of bladder (principal); E11.9 Type 2 diabetes mellitus without complications; I25.10 Atherosclerotic heart disease of native coronary artery without angina pectoris; Z12.6 Encounter for screening for malignant neoplasm of bladder; R97.20 Elevated prostate specific antigen [PSA]
CPT/HCPCS: 52000; 82962; 84153; 84154

== ENCOUNTER 2022-03-29 19:43 | Inpatient (IN) | payer MEDICARE, SELFPAY ==
[2022-03-29 19:44] VITALS: BP 127/77; PULSE 89; RESP 18; TEMP 37; O2SAT 90; BMI 25.7
--- NOTE | 2022-03-29 20:00 | ECG_ITS ---
APPROVED REPORT Exam: Resting ECG HR:98 bpm ECG Measurements Heart Rate 98 AXES WI 249 P 83 QRSd 153 QRS 262 QT 358 T 37 QTc 413 Conclusion SINUS RHYTHM WITH FIRST DEGREE AV BLOCK RIGHT AXIS DEVIATION [QRS AXIS > 100] RIGHT BUNDLE BRANCH BLOCK [120+ ms QRS DURATION, UPRIGHT V1, 40+ ms S IN I/aVL/V4/V5/V6] MINIMAL VOLTAGE CRITERIA FOR LVH, CONSIDER NORMAL VARIANT [MEETS CRITERIA IN ONE OF: R(aVL), S(V1), R(V5), R(V5/V6)+S(V1)] POSSIBLE ANTEROSEPTAL MYOCARDIAL INFARCTION , OF INDETERMINATE AGE [30 ms Q WAVE IN V1-V4] ST DEPRESSION, CONSIDER SUBENDOCARDIAL INJURY [0.1+ mV ST DEPRESSION] ABNORMAL ECG UNCONFIRMED REPORT Electronically signed by : Isac Rodriguez MD 03/30/2022 16:56:21
[2022-03-29 20:02] VITALS: BP 120/74; PULSE 91; RESP 20; O2SAT 90
--- NOTE | 2022-03-29 20:02 | XR_ITS ---
PROCEDURE INFORMATION: Exam: XR Chest Exam date and time: 03/29/2022 8:06 PM Age: 81 years old Clinical indication: Chest wall pain; Additional info: Chest pain TECHNIQUE: Imaging protocol: Radiologic exam of the chest. Views: 2 views. COMPARISON: CT CHEST W CON 10/11/2019 10:12 AM FINDINGS: Lungs: There is mild bibasilar atelectasis. Lungs are otherwise clear. Pleural spaces: Unremarkable. No pleural effusion. No pneumothorax. Heart/Mediastinum: Unremarkable. No cardiomegaly. Bones/joints: Moderate degenerative changes noted throughout the thoracic spine. IMPRESSION: Mild hypoaeration changes.
[2022-03-29 20:11] LABS: Basophils # 0.1 K/mm3 (0-0.2); Eosinophils # 0.2 K/mm3 (0.0-0.4); Eosinophils % 2.5 % (0.1-12.0); Hematocrit 44.2 % (42.0-52.0); Hemoglobin 14.4 g/dL (14.1-18.0); Lymphocytes % 29.1 % (10-50); Mean Corpuscular HGB Conc 32.5 g/dL (31.8-35.4); Mean Corpuscular Hemoglobin 30.2 pg (27.0-31.2); Mean Platelet Volume 7.5 fl (7.4-10.4); Monocytes # 0.4 K/mm3 (0.1-1.0); Neutrophils # 4.2 K/mm3 (1.8-7.8); Neutrophils % 61.5 % (37.0-80.0); Platelet Count 195 K/mm3 (142-424); Red Blood Count 4.76 M/mm3 (4.60-6.20); Red Cell Distribution Width 13.8 % (11.5-17.5); White Blood Count 6.8 K/mm3 (4.8-10.8)
--- NOTE | 2022-03-29 20:14 | HMH.EDCP ---
Discharge Plan Disposition Patient Disposition: Admitted as Observation Chief Complaint: Chest Pain Clinical Impressions Clinical Impression: CAD (coronary artery disease), Diabetes mellitus, Right bundle branch block, Aortic stenosis, Chest pain, Acute UTI (urinary tract infection) Discharge ED Provider: Khris Murphy Chest Pain HPI General Chief Complaint: Chest Pain Stated Complaint: chest pain Time Seen by Provider: 03/29/22 20:14 Mode of Arrival: Wheelchair Source of Information: Patient, Significant Other and Medical Record Limitations: No Limitations Description of Symptoms (Recalled from ER Triage Doc. by RN): pt reports to havechest pain. the pt arrived to the ER with mid sternal chest after dinner tonight the pt started belching and now has achy pain that hurts upon palpation History of Present Illness HPI narrative: pt with lower chest pain with assoc belching and has known hx of aortic stenosis - hx of rbbb - hx of diabetes MD complaint: chest pain indicative of cardiac Onset (ago): hour(s) Duration: now resolved Activity at onset: after eating Pain location: epigastric Severity: moderate Quality: dull Pain radiation: abdomen Exacerbating factors: eating Associated symptoms: nausea Risk Factors for CAD: Hypertension, Family Hx of CAD and Diabetes Treatments prior to or on arrival for Cardiac Chest Pain: nitroglycerin ROMIE Score for Non-Stemi Age of Patient: 70-79 years old Heart Rate: 90-109 bpm Systolic Blood Pressure: 120-139 mmhg Serum Creatinine: 1.20-1.59 mg/dl CHF Killip Class: I-No CHF Other Risk Factors: Elevated Cardiac Enzymes or Biomarkers Non-Stemi Risk Score: 148 Risk Stratification: [id number] = High Risk Related Data Prior Cardiac Testing/Procedures: Echocardiogram Home Medications Medication Instructions Recorded Confirmed cilostazol 100 mg tablet 100 mg PO BID memory 04/28/17 03/29/22 pravastatin 40 mg tablet 40 mg PO QHS Cholesterol 04/28/17 03/29/22 diltiazem HCl 180 mg 180 mg PO BID High blood pressure 10/06/17 03/29/22 capsule,extended release 24 hr 90 days #180 caps lisinopril 20 1 tab PO BID High blood pressure 10/06/17 03/29/22 mg-hydrochlorothiazide 12.5 mg 90 days #180 tabs tablet memantine ER 28 mg-donepezil 10 mg 1 cap PO Q24H memory 90 days 10/06/17 03/29/22 capsule sprinkle,ext.release 24 hr potassium chloride 10 mEq 10 meq PO DAILY Supplement 04/08/19 03/29/22 tablet,extended release insulin glargine 100 unit/mL (3 25 unit SUB-Q DAILY Diabetes 90 10/07/19 03/29/22 mL) subcutaneous pen days #22.5 mL empagliflozin 10 mg tablet 25 mg PO DAILY Diabetes 02/22/21 03/29/22 (Jardiance) aspirin 325 mg tablet 325 mg PO .qday PRN heart health 08/23/21 03/29/22 citalopram 20 mg tablet 20 mg PO DAILY Depression 08/23/21 03/29/22 omeprazole 20 mg capsule,delayed See Rx Instructions .Route 10/24/21 03/29/22 release .COMPLEX acid reflux Previous Rx's Medication Instructions Recorded furosemide 20 mg tablet (Lasix) 20 mg PO DAILY PRN edema #30 tabs 02/24/22 Allergies Allergy/AdvReac Type Severity Reaction Status Date / Time No Known Drug Allergies Allergy Unknown Verified 02/24/22 10:36 [facility] Disclaimer: The information contained in this section may have been updated after the patient was seen, as this information can be updated by other users. Social History Smoking Status: Former smoker second hand exposure: No alcohol intake: never counseling provided: none substance use type: denies use current occupational status: retired Travel in the last 8 weeks: None household members: spouse housing: house current occupational exposures/hazards: No caffeine: Yes ROS Obtained: Yes All systems reviewed & no additional complaints except as documented Physical Exam General General appearance: alert Head Head exam: normocephalic Eye Eye exam: Present PERRL and EOMI ENT ENT
[2022-03-29 20:19] LABS: Alanine Aminotransferase 24 U/L (12-78); Albumin Level 3.8 g/dl (3.5-5.0); Albumin/Globulin Ratio 1.2 (1.1-1.8); Alkaline Phosphatase 109 U/L (38-126); Amylase 42 U/L (30-110); Aspartate Amino Transferase 32 U/L (17-59); Bilirubin,Total 0.6 mg/dl (0.2-1.3); Blood Urea Nitrogen 30 mg/dl (9-20); Calcium 8.9 mg/dl (8.4-10.2); Carbon Dioxide 29 mmol/L (22.0-30.0); Chloride 98 mmol/L (98-107); Creatinine Clearance Estimated 42 mL/min (50-200); Estimated Glomerular Filt Rate 45 ml/min (>60); GFR (African American) 55 ML/MIN (>60); Globulin 3.1 g/dL (1.3-3.2); Lipase 132 U/L (23-300); Sodium 136 mmol/L (136-145); Total Protein,Serum 6.9 g/dl (6.3-8.2)
[2022-03-29 20:22] LABS: Glucose 409 mg/dl (74-100)
--- NOTE | 2022-03-29 20:23 | PC.NURSE ---
notified ed of critical glucose 409
[2022-03-29 20:30] VITALS: BP 135/76; PULSE 94; RESP 20; O2SAT 90
[2022-03-29 20:31] LABS: Troponin I 0.05 ng/ml (0.00-0.034)
--- NOTE | 2022-03-29 20:34 | CT_ITS ---
PROCEDURE INFORMATION: Exam: CT Abdomen And Pelvis With Contrast Exam date and time: 03/29/2022 9:08 PM Age: 81 years old Clinical indication: Abdominal pain; Epigastric; Additional info: Epi gastric pain TECHNIQUE: Imaging protocol: Computed tomography of the abdomen and pelvis with contrast. Radiation optimization: All CT scans at this facility use at least one of these dose optimization techniques: automated exposure control; mA and/or kV adjustment per patient size (includes targeted exams where dose is matched to clinical indication); or iterative reconstruction. Contrast material: ISOVUE; Contrast volume: 75 ml; Contrast route: IV; COMPARISON: CT ABDOMEN PELVIS W CON 10/11/2019 10:12 AM FINDINGS: Heart: Dense calcifications of the mitral annulus and coronary artery calcification is noted in the chest. Liver: Normal. No mass. Gallbladder and bile ducts: Normal. No calcified stones. No ductal dilation. Pancreas: Moderate scattered pancreatic calcifications are noted compatible with chronic pancreatitis. No evidence of acute pancreatitis. Spleen: Normal. No splenomegaly. Adrenal glands: Normal. No mass. Kidneys and ureters: There is mild right hydronephrosis. Relative increased density within the right renal pelvis may represent significant urothelial thickening/enhancement or high-density fluid such as hematuria or pyuria. There is a 4.9 cm simple cortical cyst in the upper right kidney. Stomach and bowel: There is moderate sigmoid diverticulosis. No evidence of diverticulitis. No evidence of bowel obstruction. Appendix: No evidence of appendicitis. Intraperitoneal space: Unremarkable. No free air. No significant fluid collection. Vasculature: Moderate diffuse atherosclerotic calcification noted in the abdominal aorta and its branches. Aorta is normal in caliber. Lymph nodes: Unremarkable. No enlarged lymph nodes. Urinary bladder: Unremarkable as visualized. Reproductive: Prostate gland appears mildly enlarged, measuring 5.2 cm in diameter. Bones/joints: There is significant chronic appearing compression of the T12 vertebra which has occurred since the previous study. No acute fracture seen. Moderate multilevel degenerative disc changes noted throughout the lower spine. Soft tissues: Unremarkable. IMPRESSION: 1. Mild right hydronephrosis with increased density which may represent significant urothelial thickening or high-density fluid such as hematuria or pyuria. Findings suggests urinary tract infection. Of note, enhancement of the kidney appears normal. 2. Other chronic appearing changes as described. COMMENTS: Consistent with the [employer]'s Incidental Findings Committee white paper (J Am Maggie Radiol 2018): Any incidental renal lesion less than 1 cm or classified as too small to characterize, or any incidental cystic renal lesion characterized as simple-appearing, is likely benign. No follow-up imaging is recommended for these lesions per consensus recommendations based on imaging criteria.
--- NOTE | 2022-03-29 21:02 | PC.NURSE ---
pt gone to CT at this time.
[2022-03-29 21:26] LABS: Coronavirus 19, PCR Not Detected (NotDetected); Influenza A, PCR Not Detected (NotDetected); Influenza B, PCR Not Detected (NotDetected)
[2022-03-29 21:40] LABS: Microscopic, Urine URINE MICROSCOPIC (MICROSCOPIC)
[2022-03-29 21:45] LABS: Appearance,Urine SL CLOUDY (Clear); Bilirubin,Urine Negative (Negative); Blood, Urine 3+ (Negative); Color,Urine YELLOW (Yellow); Glucose,Urine (UA) 3+ (Negative); Ketones,Urine Negative (Negative); Leukocyte Esterase,Urine Negative (Negative); Nitrate,Urine Negative (Negative); Protein,Urine Negative (Negative); Specific Gravity, Urine 1.015 (1.005-1.030)
[2022-03-29 21:48] LABS: RBC,Urine 50-100 #/hpf (0-3); WBC,Urine 20-50 #/hpf (0-3)
--- NOTE | 2022-03-29 21:51 | PC.NURSE ---
ed on phone with dr pool
--- NOTE | 2022-03-29 21:57 | PC.NURSE ---
ER speaking with pt at this time
[2022-03-29 22:40] LABS: POC Glucose,Bedside 412 (70-110)
[2022-03-29 22:48] VITALS: BP 107/61; PULSE 78; RESP 16; TEMP 37; O2SAT 95
[2022-03-29 22:52] VITALS: BP 107/62; PULSE 62; RESP 16; TEMP 36.7; O2SAT 92; BMI 26.8
--- NOTE | 2022-03-29 22:52 | PC.NURSE ---
Pt arrived to floor via wheelchair @ 2250.
[2022-03-30] VITALS: BP 110/66; PULSE 66; RESP 16; TEMP 36.6; O2SAT 92
--- NOTE | 2022-03-30 00:48 | PC.NURSE ---
pt. refused to wear heart monitor and cpox. . Michael aware and states to leave it off.
--- NOTE | 2022-03-30 00:54 | PC.NURSE ---
Intial telemetry strip @ 2301; Rate- 90, DE- 0.28, QRS- 0.14, QT- 0.40. 1st degree AV block, sinus rhythm, and BBB. Read by Valdo day.
--- NOTE | 2022-03-30 01:26 | PC.NURSE ---
pt. pulled out iv and has refused to have another one placed.
--- NOTE | 2022-03-30 01:33 | PC.NURSE ---
Charge nurse aware pt refused another iv.
--- NOTE | 2022-03-30 02:04 | PC.NURSE ---
0000 telemetry HR-90. NV- 0.30, QRS- 0.16, QT- 0.40. !st degree AV block, BBB, and sinus rhythm, read by marita day.
[2022-03-30 04:00] VITALS: BP 137/64; PULSE 66; RESP 16; TEMP 36.6; O2SAT 95; BMI 26.8
[2022-03-30 05:57] LABS: POC Glucose,Bedside 314 (70-110)
--- NOTE | 2022-03-30 06:11 | PC.NURSE ---
Pt. got up out of the bed several times tonight without asking for help. He pulled off his arm bands, iv, and tele monitor. Refused another iv placement.
[2022-03-30 07:30] LABS: Basophils # 0.1 K/mm3 (0-0.2); Basophils % 0.8 % (0.1-2.0); Eosinophils # 0.1 K/mm3 (0.0-0.4); Eosinophils % 2.2 % (0.1-12.0); Hematocrit 37.3 % (42.0-52.0); Lymphocytes # 1.6 K/mm3 (0.7-4.5); Mean Corpuscular HGB Conc 33.1 g/dL (31.8-35.4); Mean Corpuscular Hemoglobin 30.9 pg (27.0-31.2); Mean Corpuscular Volume 93.3 fl (80-94); Mean Platelet Volume 7.3 fl (7.4-10.4); Monocytes # 0.4 K/mm3 (0.1-1.0); Neutrophils # 3.6 K/mm3 (1.8-7.8); Neutrophils % 61.9 % (37.0-80.0); Platelet Count 181 K/mm3 (142-424); Red Cell Distribution Width 13.8 % (11.5-17.5); White Blood Count 5.8 K/mm3 (4.8-10.8)
[2022-03-30 07:41] LABS: Anion Gap 9.1 mEq/L (5-15); Blood Urea Nitrogen 28 mg/dl (9-20); Calcium 8.4 mg/dl (8.4-10.2); Carbon Dioxide 29 mmol/L (22.0-30.0); Chloride 106 mmol/L (98-107); Creatinine Clearance Estimated 51 mL/min (50-200); Estimated Glomerular Filt Rate 53 ml/min (>60); GFR (African American) 64 ML/MIN (>60); Glucose 203 mg/dl (74-100); Potassium 4.1 mmoL/L (3.5-5.1); Sodium 140 mmol/L (136-145)
[2022-03-30 07:43] LABS: Hemoglobin 12.5 g/dL (14.1-18.0)
--- NOTE | 2022-03-30 07:54 | HMH.PHAINT1 ---
Pharmacy Intervention Comments: MEDICATION RECONCILIATION COMPLETED ON PATIENT USING EXTERNAL FILL HISTORY FROM PHARMACY AND LIST FROM CARDIOLOGY OFFICE. -AYANNA AMEZCUA, SAMID
[2022-03-30 08:00] VITALS: BP 136/60; PULSE 68; RESP 17; TEMP 36.7; O2SAT 95
[2022-03-30 08:51] LABS: Troponin I 1.58 ng/ml (0.00-0.034)
--- NOTE | 2022-03-30 08:56 | PC.NURSE ---
troponin reported to Dr Rodriguez per MYRNA Ceja
--- NOTE | 2022-03-30 09:18 | EXP.HP ---
History of Present Illness *Admission Date: 03/29/22 *Reason for visit:: GI distress/dyspepsia/right neck pain *History of present illness: 81-year-old white male with history of coronary disease, status post left heart cath with stent placement several years ago. He also has a history of aortic valve stenosis, follows with cardiology clinic here and recently evaluated. Decision was made to forego any further intervention because of patient's lack of symptoms. Patient also has a history of significant dementia. He lives at home with his , is fairly functional in regards to ADLs, bathroom activities and walking, feeds and drinks himself, but can be somewhat stubborn and disagreeable with medical procedures according to . He noted to his that over the past several days has had some right neck pain. He will point to his right neck and rub it. He has had no episodes of presyncope or syncopal episodes per her. She is asking several times if he is comfortable and he will say yes. However yesterday after supper he complained of some burping and GI dyspepsia and actually stated that his chest hurt and told his he wanted to go to the hospital. He was brought to the emergency department. Work-up in the ER revealed normal vital signs. He was comfortable. EKG showed no significant exchange engineer baseline but possibly some intensification of ST/T wave changes that of previous but noted. Initial troponin level is 0.05, and he was admitted for further evaluation. [facility] Disclaimer: The information contained in this section may have been updated after the patient was seen, as this information can be updated by other users. Social History Smoking Status: Former smoker second hand exposure: No alcohol intake: never counseling provided: none substance use type: denies use current occupational status: retired Travel in the last 8 weeks: None household members: spouse housing: house current occupational exposures/hazards: No caffeine: Yes Review of Systems Review of Systems Review of systems:: pertinent systems reviewed and negative unless documented below Review of systems (narrative): Patient denies pain this morning, denies shortness of air. States that he is comfortable. Denies stomach problems Meds Home Medications and Allergies Home Medications Medication Instructions Recorded Confirmed Type cilostazol 100 mg tablet 100 mg PO BID INTERMITTENT 04/28/17 03/29/22 History CLAUDICATION pravastatin 40 mg tablet 40 mg PO HS Cholesterol 04/28/17 03/30/22 History diltiazem HCl 180 mg 180 mg PO BID HEART RATE 90 days 10/06/17 03/29/22 History capsule,extended release 24 hr #180 caps lisinopril 20 1 tab PO BID High blood pressure 10/06/17 03/29/22 History mg-hydrochlorothiazide 12.5 mg 90 days #180 tabs tablet memantine ER 28 mg-donepezil 10 mg 1 cap PO DAILY memory 90 days 10/06/17 03/30/22 History capsule sprinkle,ext.release 24 hr potassium chloride 10 mEq 10 meq PO DAILY Supplement 04/08/19 03/29/22 History tablet,extended release insulin glargine 100 unit/mL (3 25 unit SQ DAILY Diabetes 90 days 10/07/19 03/30/22 History mL) subcutaneous pen #22.5 mL aspirin 325 mg tablet 325 mg PO DAILY HEART HEALTH 08/23/21 03/30/22 History citalopram 20 mg tablet 20 mg PO DAILY Depression 08/23/21 03/29/22 History omeprazole 20 mg capsule,delayed 20 mg PO DAILY acid reflux 10/24/21 03/30/22 History release furosemide 20 mg tablet (Lasix) 20 mg PO DAILY PRN edema #30 tabs 02/24/22 03/29/22 Rx empagliflozin 25 mg tablet 25 mg PO DAILY Diabetes 03/30/22 03/30/22 History (Jardiance) New Prescriptions to Start Prescriptions: Allergies Allergy/AdvReac Type Severity Reaction Status Date / Time No Known Drug Allergies Allergy Unknown Verified 02/24/22 10:36 Exam Data for Last 24 hours Vital signs and Labs for Last 2
--- NOTE | 2022-03-30 10:05 | PC.NURSE ---
pt is resting in bed. requests not to give am meds until he wakes up
[2022-03-30 11:01] VITALS: BP 138/62; PULSE 70; RESP 18; TEMP 36.7; O2SAT 95
[2022-03-30 11:21] LABS: POC Glucose,Bedside 80 (70-110)
--- NOTE | 2022-03-30 11:28 | PC.NURSE ---
spoke with cardiology regarding consult. will see in am
--- NOTE | 2022-03-30 12:21 | PC.NURSE ---
pt is alert this morning but confused. Eating lunch in his room. family @ bedside
[2022-03-30 15:01] VITALS: BP 136/70; PULSE 76; RESP 18; TEMP 36.7; O2SAT 96
[2022-03-30 16:36] LABS: POC Glucose,Bedside 228 (70-110)
[2022-03-30 20:00] VITALS: BP 114/60; PULSE 65; RESP 16; TEMP 36.6; O2SAT 90; O2SAT 94
[2022-03-30 21:01] LABS: POC Glucose,Bedside 237 (70-110)
[2022-03-31] VITALS (17 sets, daily range): BP systolic 109–160; BP diastolic 57–94; PULSE 64–90; RESP 16–18; TEMP 36.6–36.9; O2SAT 90–97; BMI 26.5
--- NOTE | 2022-03-31 02:05 | PC.NURSE ---
Pt. is still confused this am with no other changes noted.
[2022-03-31 05:48] LABS: POC Glucose,Bedside 211 (70-110)
[2022-03-31 07:21] LABS: Anion Gap 8.2 mEq/L (5-15); Blood Urea Nitrogen 24 mg/dl (9-20); Calcium 8.6 mg/dl (8.4-10.2); Carbon Dioxide 31 mmol/L (22.0-30.0); Chloride 102 mmol/L (98-107); Creatinine Clearance Estimated 46 mL/min (50-200); Estimated Glomerular Filt Rate 49 ml/min (>60); GFR (African American) 59 ML/MIN (>60); Glucose 228 mg/dl (74-100); Potassium 4.2 mmoL/L (3.5-5.1); Sodium 137 mmol/L (136-145)
--- NOTE | 2022-03-31 07:29 | EXP.CARD.CON ---
History of Present Illness History of Present Illness Consult date: 03/31/22 Requesting physician: Isac Rodriguez Consult reason: chest pain Chief complaint: NSTEMI, Aortic stenosis-severe, Dementia Additional Medical History:: 1. CAD A. LHC, RHC and LE runoff, 06/26/2017 ANGIOGRAPHIC RESULTS: 1.? The left anterior descending artery originates in the left coronary cusp with its own ostium and has a proximal 20-30% stenoses with mid vessel 30% stenoses. The first diagonal artery is a large vessel and has a proximal to mid vessel 60% stenosis 2.? The circumflex artery is non dominant and has an origin off the right coronary artery. The vessel is 2.25 mm in diameter. Very distally there is a long 80-90% stenosis just proximal to 3 small marginal branches. 3.? The right coronary artery is a dominant vessel and has proximal 30% stenoses mid vessel 40 and 50% stenoses with distal 50% stenoses. 4.? The SANCHEZ ventriculogram reveals normal 65%? The left ventricular end-diastolic pressure less than 10 mmHg The transverse aortic gradient is approximately 20 to 25 mmHg HEMODYNAMICS: Pulmonary artery occlusion pressure is 8 mm Hg. Pulmonary arterial pressure is 25/12 mm Hg. Right atrial pressure is 3 mm Hg. SATURATIONS: PA is 74 %. RA is 76 %. The distal abdominal aorta is widely patent and has minimal disease. The bilateral common iliac artery is a large caliber vessels calcified with no stenosis greater than 10-20%. The external iliac arteries are also widely patent with minimal atheromatous plaque. The right external iliac artery and right common femoral artery is normal. right superficial femoral artery is ostially occluded severely densely calcified and occluded throughout its entire course. The SFA is occluded throughout and into the popliteal artery. The entire popliteal artery is densely calcified and occluded. The profunda femoris artery is patent however has 2 or 3 70-80% stenoses in various branches. There are pregeniculate collaterals which are relatively small and patent and cross the knee. Distally there are scant collaterals which supply the foot but all appear to be external to the 3 [place] normal runoff vessels. The left superficial femoral artery is ostially occluded and occluded throughout its entire course. The left popliteal artery does reconstitute in its proximal segment through collaterals from the profunda femoris. After the popliteal artery reconstitutes is then subtotally occluded 1 cm distally. Pregeniculate collaterals form and then cross the knee and collateralized the posterior tibialis artery which does supply the left foot. IMPRESSION: 1.? 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 Normal ejection fraction 3.? Mild aortic stenosis 4.? Normal cardiopulmonary pressures 5.? Severe peripheral artery disease with bilateral occlusion of the superficial femoral arteries and popliteal arteries. Very scant collaterals supply the lower extremity distal to the knee via collaterals from the profunda femoris PLAN: 1.? Medical management for coronary artery disease 2.? Medical management for mild aortic stenosis 3.? Patient has severe peripheral artery disease which is neither amenable to surgical or percutaneous intervention. The best treatment for this gentleman is physical therapy 4.? Dual antiplatelet therapy might help with his lower extremity peripheral artery disease 5.? LDL less than 55 6.? Avoidance of tobacco products B. Non-ST elevation NM, 03/29/2022 2. Dementia 3. Severe aortic stenosis A. JE, 06/2017, normal LV size, mild LAE, mild concentric LVH with EF 55% with no obvious regional WMA. Morphologically moderate to severe aortic stenosis with mild AI. B. JE, 08/26/2018, mild LAE, normal LV size, EF 55% with no regional WMA. Thickened and calcified aortic valve area 1.4 cm? consistent with mild AAS. Mild AI noted. Mild MR and TR
--- NOTE | 2022-03-31 07:45 | PC.NURSE ---
lab called with troponin of 0.70. yrn notified.
--- NOTE | 2022-03-31 08:00 | CA_ITS ---
APPROVED REPORT EXAM: Comprehensive 2D, Doppler, and color-flow Echocardiogram Hollock Maker: Monserrat Purcell RVT Ht: 5 ft 6 in Wt: 169lbs BSA: 1.86 BP: 136/60 mmHg Indications: CP,CAD,SEVERE ,DEMENTIA,EX SMOKER 2D Dimensions LVOT 1.97 cm (M/F) 1.5-2.5 LA Volume 81.20 mL LA Volume Index 43.66 mL/m2 (M/F) 16-34 M-Mode Dimensions RVDd 4.07 cm (0.9-2.6) LA Diam 4.46 cm (1.9-4.0) LVDd 4.36 cm (3.5-5.7) Ao Diam 3.28 cm (2.0-3.7) LVDs 3.21 cm (3.5-5.7) IVSd 1.04 cm (0.6-1.1) PWd 0.71 cm (0.6-1.1) EF (Teich) 51.90% FS 26.40% EDV (Teich) 85.80 mL TAPSE 2.15 (<1.7) ESV (Teich) 41.30 mL LV Diastology E Decel Time 200.00 (160-240 msec) E/A Ratio 0.8 MED E' 6.30 (< 7 cm/sec) E'/MED E' Ratio 17.40 (>14) LAT E' 4.00 (<10 cm/sec) E/LAT E' Ratio 27.40 (>14) Aortic Valve LVOT Max 93.00 (70-110 cm/s) LVOT VTI 20.37 cm AoV Peak Deshawn. 523.00 (50-130 cm/s) AI PHT 1408.00 ms AO Peak GR. 109.40 mmHg AO Mean GR. 70.90 (<5 mmHg) AO VTI 124.24 (18-25 cm) KIT (VTI) 0.50 (2.5-4.5 cm2) Mitral Valve MV E Max Deshawn. 110.00 (40-130 cm/s) MV A Velocity 143.00 (40-130 cm/s) E/A Ratio 0.76 MV Decel. Time 200.00 (160-240 ms) MV PHT 59.00 ms Pulmonary Valve PV Peak Velocity 99.00 (50-150 cm/s) Left Ventricle Left atrium is moderately enlarged, left ventricle is normal size, mild concentric left ventricular hypertrophy, estimated ejection fraction 55% with no regional wall motion abnormality, grade 1 diastolic dysfunction seen with tissue Doppler evidence of raise left atrial pressure. Right Ventricle Right atrium and right ventricle are mildly enlarged with normal contractility. Aortic Valve Aortic valve is thickened and calcified with severe restriction the leaflet mobility, the mean gradient across aortic valve is 75 mmHg, valve area 0.46 cm??? represents critical aortic stenosis, there is mild aortic insufficiency. Mitral Valve Mitral valve has mitral calcification which extends in both anterior posterior mitral leaflet, there is no mitral stenosis, there is mild mitral regurgitation. Tricuspid Valve Tricuspid grossly normal, there is mild tricuspid regurgitation, tricuspid regurgitation jet velocity is inadequate for calculation of the right ventricular systolic pressure. Pulmonic Valve Pulmonic valve is poorly visualized. Great Vessels Aortic root is normal size. Inferior vena cava is poorly visualized. Pericardium No significant pericardial effusion noted. Conclusion 1. Biatrial enlargement, normal left ventricular size, mild concentric left ventricular hypertrophy, estimated ejection fraction 55% with no regional wall motion abnormality, grade 1 diastolic dysfunction seen with tissue Doppler evidence of raise left atrial pressure. 2. Mildly enlarged right ventricle with normal contractility. 3. Thickened and calcified aortic valve with critical aortic stenosis, valve area 0.46 cm???. There is mild aortic insufficiency. 4. Mild mitral and tricuspid regurgitation. 5. No significant pericardial effusion noted. 6. Inferior vena cava is poorly visualized. Electronically signed by : Karthikeyan Zuniga MD 03/31/2022 22:14:10
--- NOTE | 2022-03-31 08:00 | CA_ITS ---
FINAL REPORT TECHNIQUE: Color Doppler, duplex Doppler and stafford scale sonography of the bilateral neck arterial vasculature was performed. Velocities were measured in the carotid arteries. Stenosis evaluation based on the validated velocity criteria. CLINICAL HISTORY: RT NECK PAIN,TONY,EX SMOKER,SEVERE COMPARISON: 10/10/2020 FINDINGS: The peak systolic velocity of the right common carotid artery is 109 cm/s. The peak systolic velocity of the right internal carotid artery is 152 cm/s and end diastolic velocity 40 cm/s. A moderate amount of plaque is present. The right external carotid artery is patent. The right vertebral artery is patent with antegrade flow. The peak systolic velocity of the left common carotid artery is 89 cm/s. The peak systolic velocity of the left internal carotid artery is 242 cm/s and end diastolic velocity 63 cm/s. A moderate amount of plaque is present. The left external carotid artery is patent.The left vertebral artery is patent with antegrade flow. 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 Both significantly progressed from prior exam. Recommend CTA or catheter directed angiogram for further evaluation. Reviewed, Interpreted and Dictated by Edmund Tyler III, MD Transcribed by Massiel Melton Authenticated and [facility]
--- NOTE | 2022-03-31 08:39 | EXP.ACUTE.PN ---
Subjective *Date: 03/31/22 *Time: 08:39 Interval history: No changes overnight. Patient with no complaints. not in room Medical Exam Vital signs and Labs for Last 24 Hours: Vital Signs Temp Pulse Resp BP Pulse Ox 03/31/22 08:36 130/67 03/31/22 07:52 98.3 F 75 18 110/57 L 90 L 03/31/22 04:00 98.1 F 64 16 109/62 L 96 03/31/22 00:00 97.9 F 65 16 116/70 93 L 03/30/22 20:00 98 F 65 16 114/60 90 L 03/30/22 20:00 94 L 03/30/22 15:01 98.0 F 76 18 136/70 96 03/30/22 11:01 98.1 F 70 18 138/62 95 Intake and Output 03/30/22 03/31/22 03/31/22 19:59 03:59 11:59 Intake Total 480 / 480 0 / 480 Output Total 0 / 600 600 / 600 Balance 480 / -120 -600 / -120 Intake: Intake, Oral Amount 480 / 480 0 / 480 Output: Output, Urine Amount 0 / 600 600 / 600 Other: Number of Unmeasured Voids 2 Weight 169 lb 1.6 oz Patient Weight 03/31/22 11:59 Weight 169 lb 1.6 oz Laboratory Results - last 24 hr 03/30/22 06:50: Troponin I 1.58 H 03/30/22 11:13: POC Glucose 80 03/30/22 16:13: POC Glucose 228 H 03/30/22 20:50: POC Glucose 237 H 03/31/22 05:41: POC Glucose 211 H 03/31/22 06:35: Sodium 137, Potassium 4.2, Chloride 102, Carbon Dioxide 31 H, Anion Gap 8.2, BUN 24 H, Creatinine 1.40 H, Estimated Creat Clear 46, Estimated GFR 49 L, Est GFR ( Amer) 59, Glucose 228 H, Calcium 8.6, Troponin I 0.70 H I & O for Labs for Last 24 Hours: Intake & Output 03/28/22 03/29/22 03/30/22 03/31/22 11:59 11:59 11:59 11:59 Intake Total 100 / 100 480 / 480 Output Total 300 / 300 600 / 600 Balance -200 / -200 -120 / -120 Weight 171 lb 1.6 oz 169 lb 1.6 oz Microbiology Reports for the Last 24 Hours: Microbiology 03/29/22 21:34 Urine,Clean Catch Urine Culture - Preliminary Constitutional: Present no acute distress Respiratory: Present normal respiratory effort Cardiac: Present Reg Rate and Rhythm GI: Present normal bowel sounds; Absent tenderness Extremities: Present normal inspection and full ROM Skin: Present intact; Absent erythema Neuro: Present Grossly Intact and moves all extremities Assessment and Plan *Assessment and plan (1) NSTEMI (non-ST elevated myocardial infarction): Status: Acute Category: Medical Code(s): I21.4 - Non-ST elevation (NSTEMI) myocardial infarction (2) Diabetes mellitus: Status: Chronic Category: Medical Code(s): E11.9 - Type 2 diabetes mellitus without complications (3) Right bundle branch block: Status: Acute Category: Medical Code(s): I45.10 - Unspecified right bundle-branch block (4) Carotid artery stenosis: Status: Chronic Qualifiers: Laterality: bilateral Qualified Code(s): I65.23 - Occlusion and stenosis of bilateral carotid arteries Category: Medical Code(s): I65.29 - Occlusion and stenosis of unspecified carotid artery (5) PAD (peripheral artery disease): Status: Chronic Category: Medical Code(s): I73.9 - Peripheral vascular disease, unspecified (6) CAD (coronary artery disease): Status: Chronic Category: Medical Code(s): I25.10 - Atherosclerotic heart disease of [place] coronary artery without angina pectoris (7) Aortic stenosis: Status: Chronic Category: Medical Code(s): I35.0 - Nonrheumatic aortic (valve) stenosis (8) Senile dementia with behavioral disturbance: Status: Acute Category: Medical Code(s): F03.918 - Unspecified dementia, unspecified severity, with other behavioral disturbance (9) Acute UTI (urinary tract infection): Status: Acute Category: Medical Code(s): N39.0 - Urinary tract infection, site not specified Plan Cardiology consult note noted. Patient's wishes more aggressive interventions. Cardiology will discuss with patient's . Currently asymptomatic. Once cardiology evaluation rola
--- NOTE | 2022-03-31 10:52 | IR_ITS ---
APPROVED REPORT Patient Location: Inpatient Epic Application Coordinator: AVELINA Garrison RT (R) PROCEDURES Selective coronary angiogram Drug-eluting stent deployment to the ostial proximal mid LAD Drug-eluting stent deployment to the mid dominant right coronary INDICATION Coronary artery disease, Acute non-ST elevation myocardial infarction Informed consent was obtained prior to the procedure. COMPLICATIONS None Estimated Blood Loss: Less than 10 ML TECHNIQUE One percent lidocaine used to anesthetize the right anterior aspect of the wrist. The right radial artery was accessed via the Seldinger technique. A 6 Welsh sheath was placed in the right radial artery. 2.5 mg of verapamil, 800 mcg of nitroglycerin, 1mg Lidocaine and 5000 U Heparin were given through the arterial sheath. The papa catheter was also used to perform selective coronary angiography. The guide catheter was placed into the left anterior descending artery which originated from the left coronary cusp. A Choice PT extra-support wire was placed distally and a 4 mm x 22 mm resolute Easton stent was deployed at 20 tristan reducing the stenosis. An additional 5 mm x 12 mm noncompliant balloon was then deployed at 20 and then 24 tristan to reduce the ostial segment which originated from the left coronary cusp. Excellent angiographic results were obtained with HEIDI-3 flow being present before and after the procedure. Following this the guide catheter was placed into the right coronary artery and a Choice PT extra-support wire was placed distally. Primary stenting could not be performed therefore 3 mm x 12 mm noncompliant balloon was deployed at 20 tristan in the mid segment to reduce the calcified stenosis which allowed a 3.5 x 22 mm resolute Easton stent to be deployed at 20 tristan reducing the focal calcified severe stenosis to 0%. HEIDI-3 flow was present before and after the procedure. At the end the procedure the apparatus was removed the sheath was removed good hemostasis was achieved using TR banding patient was transferred to the postop putting in stable condition ANGIOGRAPHIC RESULTS The left anterior descending artery Originates from the left coronary cusp and has an ostial eccentric 70% stenosis followed by a proximal eccentric 40% stenosis. A large third diagonal artery which is the largest of all diagonal arteries has an ostial 70% stenosis with proximal 60 and then concentric 80% stenosis in a 2.5 to 2.75 mm vessel The circumflex artery Originates off the right coronary artery which originates in the right coronary cusp. The angiogram from 06/26/2017 was reviewed prior to the current diagnostic angiogram and the circumflex artery did originate from the proximal right coronary artery is nondominant and small. There was a small proximal 50% eccentric stenosis in this small 2 mm circumflex artery. Today it was visualized that the circumflex artery is patent however full angiographic evaluation was not performed due to renal insufficiency The right coronary artery Is a large dominant vessel which originates in the right coronary cusp and has proximal concentric calcified 40% stenosis mid vessel 50% stenosis with tandem focal 80 and 60% calcified stenoses. 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
[2022-03-31 12:30] LABS: POC Glucose,Bedside 216 (70-110)
--- NOTE | 2022-03-31 12:40 | PC.NURSE ---
Addendum entered by Lisa Santoyo RN 03/31/22 13:10: per yrn order jardiance 10mg. januvia 50mg po. Original Note: per dr. pool order pts home meds jardiance and januvia. does not know the mg. speaking with pharmacy now
--- NOTE | 2022-03-31 13:32 | PC.NURSE ---
brought in pts home meds. gave to pharmacy
[2022-03-31 15:14] LABS: CATHL Activated Clotting Time > 400 SEC (74-125)
[2022-03-31 16:16] LABS: POC Glucose,Bedside 209 (70-110)
--- NOTE | 2022-03-31 16:20 | PC.NURSE ---
PT ALERT X3. LOTS OF ENCOURAGEMENT TO SWALLOW AM PILLS, PT KEPT POCKETING THEM. SAYS HE DOES THIS EVERY MORNING. SINCE COMING BACK TO THE FLOOR FROM CALL CENTER OPERATIONS MANAGER, VSS. RT RADIAL WITH TRACLET SILL IN PLACE AT THIS TIME. WILL BEGIN TO TAKE AIR OUT AT 1700
[2022-03-31 19:53] LABS: POC Glucose,Bedside 345 (70-110)
--- NOTE | 2022-04-01 02:37 | PC.NURSE ---
Pt resting in bed at this time, staff has been in the room all shift. Pt was very anxious and Was A/O x 4 at beginning of shift, then became confused about where he was. Pt up several times, was pulling at pressure cuff and IV. This show card writer has slowly released air from cuff to prevent more bleeding. Pt had removed it on prior shift bleeding started to occur. Pt has been educated on Plan of care and reoriented to place and situation. Pt is now resting better and more clear minded. Lungs were clear, resp even and non labored, IV is patent, bed locked in low position, side rails up x 2, call light in reach.
[2022-04-01 03:29] VITALS: BMI 26.3
[2022-04-01 03:30] VITALS: BP 145/74; PULSE 96; RESP 17; TEMP 37.3; O2SAT 93
[2022-04-01 05:19] LABS: POC Glucose,Bedside 257 (70-110)
[2022-04-01 07:29] LABS: Anion Gap 10.9 mEq/L (5-15); Blood Urea Nitrogen 22 mg/dl (9-20); Calcium 8.5 mg/dl (8.4-10.2); Carbon Dioxide 29 mmol/L (22.0-30.0); Chloride 99 mmol/L (98-107); Creatinine Clearance Estimated 50 mL/min (50-200); Estimated Glomerular Filt Rate 53 ml/min (>60); GFR (African American) 64 ML/MIN (>60); Glucose 238 mg/dl (74-100); Potassium 3.9 mmoL/L (3.5-5.1); Sodium 135 mmol/L (136-145)
[2022-04-01 07:30] LABS: Basophils % 0.4 % (0.1-2.0); Eosinophils # 0.2 K/mm3 (0.0-0.4); Eosinophils % 2.1 % (0.1-12.0); Hematocrit 39.6 % (42.0-52.0); Hemoglobin 12.9 g/dL (14.1-18.0); Lymphocytes # 1.5 K/mm3 (0.7-4.5); Lymphocytes % 15.5 % (10-50); Mean Corpuscular HGB Conc 32.6 g/dL (31.8-35.4); Mean Corpuscular Hemoglobin 30.2 pg (27.0-31.2); Mean Corpuscular Volume 92.6 fl (80-94); Mean Platelet Volume 7.2 fl (7.4-10.4); Monocytes # 0.7 K/mm3 (0.1-1.0); Monocytes % 6.8 % (1.7-9.3); Neutrophils # 7.4 K/mm3 (1.8-7.8); Neutrophils % 75.1 % (37.0-80.0); Platelet Count 219 K/mm3 (142-424); Red Blood Count 4.27 M/mm3 (4.60-6.20); White Blood Count 9.8 K/mm3 (4.8-10.8)
--- NOTE | 2022-04-01 07:49 | EXP.DC.SUM ---
General Admission date:: 03/29/22 Discharge date: 04/01/22 HPI HPI HPI: 81-year-old white male with history of coronary disease, status post left heart cath with stent placement several years ago. He also has a history of aortic valve stenosis, follows with cardiology clinic here and recently evaluated. Decision was made to forego any further intervention because of patient's lack of symptoms. Patient also has a history of significant dementia. He lives at home with his , is fairly functional in regards to ADLs, bathroom activities and walking, feeds and drinks himself, but can be somewhat stubborn and disagreeable with medical procedures according to . He noted to his that over the past several days has had some right neck pain. He will point to his right neck and rub it. He has had no episodes of presyncope or syncopal episodes per her. She is asking several times if he is comfortable and he will say yes. However yesterday after supper he complained of some burping and GI dyspepsia and actually stated that his chest hurt and told his he wanted to go to the hospital. He was brought to the emergency department. Work-up in the ER revealed normal vital signs. He was comfortable. EKG showed no significant exchange clerk baseline but possibly some intensification of ST/T wave changes that of previous but noted. Initial troponin level is 0.05, and he was admitted for further evaluation. Hospital Course Hospital Course Hospital Course: Patient was admitted. Placed on telemetry monitoring. Symptoms abated, but given the character of his symptoms and elevated troponins he was taken for heart cath which revealed LAD lesion that was stented. Aortic stenosis was noted, patient's wished further work-up noted and cardiology has made arrangements for him to see Dr. Del Real in as an outpatient. Patient tolerated the procedure well. Last night did have to have 1 dose of IV Ativan because of his dementia and some IV pulling behaviors. This resolved the situation he slept well for the rest of the night. This morning he is much more alert. Exam normal. He will be discharged home with appropriate medications and follow-up. Patient was also noted to have a UTI on admission. Placed on ceftriaxone and had no symptoms. At the time of discharge cultures growing gram-negative rods, he will be discharged on cefdinir, will follow culture as an outpatient. Exam Data for Last 24 hours Vital signs and Labs for Last 24 Hours: Temp Pulse Resp BP Pulse Ox 99.1 F 96 H 17 145/74 H 93 L 04/01/22 03:30 04/01/22 03:30 04/01/22 03:30 04/01/22 03:30 04/01/22 03:30 Laboratory Results - last 24 hr 03/29/22 21:34: Urine Color Yellow, Urine Appearance Sl cloudy, Urine pH 6.0, Ur Specific [place] 1.015, Urine Protein Negative, Urine Glucose (UA) 3+, Urine Ketones Negative, Urine Blood 3+, Urine Nitrate Negative, Urine Bilirubin Negative, Urine Urobilinogen 1.0, Ur Leukocyte Esterase Negative, Urine RBC 50-100, Urine WBC 20-50 03/31/22 12:23: POC Glucose 216 H 03/31/22 15:29: Activated Clotting Time > 400 H* 03/31/22 16:00: POC Glucose 209 H 03/31/22 19:33: POC Glucose 345 H* 04/01/22 05:09: POC Glucose 257 H 04/01/22 06:53: WBC 9.8 D, RBC 4.27 L, Hgb 12.9 L, Hct 39.6 L, MCV 92.6, MCH 30.2, MCHC 32.6, RDW 14.0, Plt Count 219, MPV 7.2 L, Neut % (Auto) 75.1, Lymph % (Auto) 15.5, [place] % (Auto) 6.8, Eos % (Auto) 2.1, Baso % (Auto) 0.4, Neut # (Auto) 7.4, Lymph # (Auto) 1.5, [place] # (Auto) 0.7, Eos # (Auto) 0.2, Baso # (Auto) 0.0 04/01/22 06:53: Sodium 135 L, Potassium 3.9, Chloride 99, Carbon Dioxide 29, Anion Gap 10.9, BUN 22 H, Creatinine 1.30 H, Estimated Creat Clear 50, Estimated GFR 53 L, Est GFR ( Amer) 64, Glucose 238 H, Calcium 8.5 I & O for Last 24 hours: Intake & Output 03/29/22 03/30/22 03/31/22 04/01/22 11:59 11:59 11:59 11:59 Intake Total 100 / 100 480 / 480 120 / 120 Output Total 300 / 300 600 / 600 150
--- NOTE | 2022-04-01 07:55 | EXP.CARD.PN ---
Subjective Subjective Date: 04/01/22 Time: 07:55 Principal diagnosis: chest pain Interval history: 81-year-old white male in bed in no acute distress. Nurse relates patient removed tracely at last evening with some arterial bleeding that was quickly stopped after replacing the tray slipped. Radial access site looks good this morning with patient denying any pain in the hand. He denies any chest pain, pressure or tightness. He did receive coronary stents to the LAD and RCA yesterday. He will be referred to Dr. Del Real at [facility] for consideration of TAVR as an outpatient. Patient could be discharged home today Exam Data for Last 24 hours Vital signs and Labs for Last 24 Hours: Temp Pulse Resp BP Pulse Ox 99.1 F 96 H 17 145/74 H 93 L 04/01/22 03:30 04/01/22 03:30 04/01/22 03:30 04/01/22 03:30 04/01/22 03:30 Laboratory Results - last 24 hr 03/29/22 21:34: Urine Color Yellow, Urine Appearance Sl cloudy, Urine pH 6.0, Ur Specific [place] 1.015, Urine Protein Negative, Urine Glucose (UA) 3+, Urine Ketones Negative, Urine Blood 3+, Urine Nitrate Negative, Urine Bilirubin Negative, Urine Urobilinogen 1.0, Ur Leukocyte Esterase Negative, Urine RBC 50-100, Urine WBC 20-50 03/31/22 12:23: POC Glucose 216 H 03/31/22 15:29: Activated Clotting Time > 400 H* 03/31/22 16:00: POC Glucose 209 H 03/31/22 19:33: POC Glucose 345 H* 04/01/22 05:09: POC Glucose 257 H 04/01/22 06:53: WBC 9.8 D, RBC 4.27 L, Hgb 12.9 L, Hct 39.6 L, MCV 92.6, MCH 30.2, MCHC 32.6, RDW 14.0, Plt Count 219, MPV 7.2 L, Neut % (Auto) 75.1, Lymph % (Auto) 15.5, [place] % (Auto) 6.8, Eos % (Auto) 2.1, Baso % (Auto) 0.4, Neut # (Auto) 7.4, Lymph # (Auto) 1.5, [place] # (Auto) 0.7, Eos # (Auto) 0.2, Baso # (Auto) 0.0 04/01/22 06:53: Sodium 135 L, Potassium 3.9, Chloride 99, Carbon Dioxide 29, Anion Gap 10.9, BUN 22 H, Creatinine 1.30 H, Estimated Creat Clear 50, Estimated GFR 53 L, Est GFR ( Amer) 64, Glucose 238 H, Calcium 8.5 I & O for Last 24 hours: Intake & Output 03/29/22 03/30/22 03/31/22 04/01/22 11:59 11:59 11:59 11:59 Intake Total 100 / 100 480 / 480 120 / 120 Output Total 300 / 300 600 / 600 150 / 150 Balance -200 / -200 -120 / -120 -30 / -30 Weight 171 lb 1.6 oz 169 lb 1.6 oz 167 lb 9 oz Microbiology Reports for the Last 24 Hours: Microbiology 03/29/22 21:34 Urine,Clean Catch Urine Culture - Preliminary Gram Negative Rods Gram Negative Rods#2 Constitutional Constitutional: no acute distress *Routine Respiratory Exam Respiratory: Present CTA bilaterally *Routine Cardiovascular Exam Cardiovascular: Present RRR and murmur *Routine Extremities Exam Extremities: Absent edema Progress Note: A&P Assessment and plan (1) NSTEMI (non-ST elevated myocardial infarction): Status: Acute (2) Diabetes mellitus: Status: Chronic (3) Right bundle branch block: Status: Acute (4) Carotid artery stenosis: Status: Chronic (5) PAD (peripheral artery disease): Status: Chronic (6) CAD (coronary artery disease): Status: Chronic (7) Aortic stenosis: Status: Chronic (8) Senile dementia with behavioral disturbance: Status: Acute (9) Acute UTI (urinary tract infection): Status: Acute Assessment and Plan Assessment and Plan for All Diagnoses:: 1. Chest pain with elevated troponins consistent with non-ST elevation NC. Status post LEANA to LAD and RCA. Continue aspirin and Plavix. 2. Severe aortic stenosis with plans for outpatient referral for TAVR consideration 3. Memory loss 4. Diabetes mellitus 5. Hyperlipidemia, continue atorvastatin 40 mg daily Stable from a cardiac standpoint for discharge home. Home medication recommendations Aspirin 81 mg daily Clopidogrel 75 mg daily Diltiazem 180 twice daily Lisinopril HCT 20-12.5 mg daily Atorvastatin 40 mg daily Lasix 20 mg daily as needed Potassium 10 mEq daily as needed
[2022-04-01 08:00] VITALS: BP 141/76; PULSE 71; RESP 18; TEMP 36.8; O2SAT 91
--- NOTE | 2022-04-01 09:52 | PC.NURSE ---
dc packet went over with . called both pharmacy and dietitian to speak with about diabetic diet for pt. pt will be ready to go after speaks to them.
--- NOTE | 2022-04-01 12:34 | DIET.NUTRFU ---
RD saw patient prior to discharge to review diabetic meal plan. Unable to educate d/t confusion. present and she does all meal prep. Reviewed current meal plan, it sounds like he likes to snack through night. Reviewed smart snacks to prep ahead like proportioned grapes and cheese cubes or peanut butter and crackers. Also reviewed meals, they often have bananas, encouraged to share one. They also like to dine out, reviewed plate setup. provided multiple handout and contact information for further questions
--- NOTE | 2022-04-01 13:31 | HMH.PHACL ---
[facility] Yoke Setter Discharge Med Professional Sports Scout: Steven Rodríguez has received discharge medication counseling on the following medications: atorvastatin 40 mg (IN PLACE OF pravastatin 40 mg), lisinopril-HCTZ 20-12.5 mg, metoprolol succinate ER 25 mg, aspirin 325 mg, and clopidogrel 75 mg. Additionally, discussed NEW and continued medications as well as indications and possible adverse effects/mitigation strategies for each. Instructed patient to STOP cilostazol and pravastatin. Patient with family at bedside verbalized understanding of information provided and had no questions or concerns at this time. -Kari Ochoa, PharmD Candidate 2022
--- NOTE | 2022-04-02 14:03 | CARE MANAGER ---
Spoke with patient for post-discharge phone interview, she states patient is doing well and has no issues.
== END 2022-04-01 10:57 | disposition home or self-care (01) | DRG 249 ==
LOC: ER 21:10 → 2ND 22:23
PROVIDERS: Internal Medicine; Admitting Provider Internal Medicine Adolescent Medicine; Emergency Provider Emergency Medicine; PCP Nurse Practitioner Family; Visit Provider Internal Medicine Adolescent Medicine
PROC: 02H13DZ Insertion of Intraluminal Device into Coronary Artery, Two Arteries, Percutaneous Approach (ICD-10-PCS; principal; 2022-03-31 13:00)
DX: I21.4 Non-ST elevation (NSTEMI) myocardial infarction (principal); N39.0 Urinary tract infection, site not specified; F03.918 Unspecified dementia, unspecified severity, with other behavioral disturbance; I25.10 Atherosclerotic heart disease of native coronary artery without angina pectoris; I35.0 Nonrheumatic aortic (valve) stenosis; E11.9 Type 2 diabetes mellitus without complications; Z79.4 Long term (current) use of insulin; I73.9 Peripheral vascular disease, unspecified; E78.5 Hyperlipidemia, unspecified
CPT/HCPCS: 36415; 71046; 74177; 80048; 80053; 81001; 82150; 82962; 83690; 84484; 85025; 85347; 87086; 87088; 87186; 92928; 93005; 93306; 93458; 93880; 99152; 99153; 99285; C1725; C1769; C1876; C9600; C9803; G0378; J0696; J1644; J2405; Q9967; U0003; U0005

== ENCOUNTER → 2022-04-07 11:22 | Outpatient (CLI) | payer MEDICARE, SELFPAY ==
[2022-04-07 13:28] LABS: Basophils # 0.1 K/mm3 (0-0.2); Basophils % 0.8 % (0.1-2.0); Eosinophils # 0.3 K/mm3 (0.0-0.4); Eosinophils % 3.3 % (0.1-12.0); Hematocrit 46.8 % (42.0-52.0); Hemoglobin 15.1 g/dL (14.1-18.0); Lymphocytes # 1.6 K/mm3 (0.7-4.5); Lymphocytes % 18.7 % (10-50); Mean Corpuscular HGB Conc 32.3 g/dL (31.8-35.4); Mean Corpuscular Hemoglobin 30.6 pg (27.0-31.2); Mean Corpuscular Volume 94.7 fl (80-94); Mean Platelet Volume 6.9 fl (7.4-10.4); Monocytes # 0.5 K/mm3 (0.1-1.0); Neutrophils # 5.9 K/mm3 (1.8-7.8); Neutrophils % 71.2 % (37.0-80.0); Platelet Count 277 K/mm3 (142-424); Red Blood Count 4.94 M/mm3 (4.60-6.20); Red Cell Distribution Width 13.9 % (11.5-17.5); White Blood Count 8.3 K/mm3 (4.8-10.8)
[2022-04-07 13:46] LABS: Anion Gap 14.2 mEq/L (5-15); Blood Urea Nitrogen 33 mg/dl (9-20); Calcium 9.3 mg/dl (8.4-10.2); Carbon Dioxide 33 mmol/L (22.0-30.0); Chloride 96 mmol/L (98-107); Estimated Glomerular Filt Rate 45 ml/min (>60); GFR (African American) 55 ML/MIN (>60); Glucose 241 mg/dl (74-100); Potassium 4.2 mmoL/L (3.5-5.1); Sodium 139 mmol/L (136-145)
== END ==
PROVIDERS: PCP Internal Medicine Adolescent Medicine; Visit Provider Internal Medicine
DX: I25.10 Atherosclerotic heart disease of native coronary artery without angina pectoris (principal); Z95.5 Presence of coronary angioplasty implant and graft
CPT/HCPCS: 36415; 80048; 85025

== ENCOUNTER 2022-07-28 11:09 | Observation (INO) | payer MEDICARE, SELFPAY ==
[2022-07-28] VITALS (10 sets, daily range): BP systolic 95–124; BP diastolic 55–81; PULSE 63–99; RESP 19–22; TEMP 36.4–36.7; O2SAT 85–100; BMI 25.3; BMI 25.0
--- NOTE | 2022-07-28 11:15 | PC.NURSE ---
PT PLACED ON 3L/NC
--- NOTE | 2022-07-28 11:18 | ECG_ITS ---
APPROVED REPORT Exam: Resting ECG HR:103 bpm ECG Measurements Heart Rate 103 AXES ME 200 P 21 QRSd 138 QRS 164 QT 386 T 31 QTc 446 Conclusion SINUS TACHYCARDIA WITH OCCASIONAL SUPRAVENTRICULAR PREMATURE COMPLEXES RIGHT BUNDLE BRANCH BLOCK [120+ ms QRS DURATION, UPRIGHT V1, 40+ ms S IN I/aVL/V4/V5/V6] LEFT POSTERIOR FASCICULAR BLOCK Old septal changes ABNORMAL ECG UNCONFIRMED REPORT Electronically signed by : Isac Rodriguez MD 07/29/2022 22:08:20
--- NOTE | 2022-07-28 11:27 | XR_ITS ---
FINAL REPORT CLINICAL HISTORY: SOA COMPARISON: 03/29/2022 FINDINGS: There are hypodensities in the bilateral lung bases. Bilateral pleural effusions are present with worsening atelectasis. The upper lobes are clear. Mediastinum is unremarkable. There is mild cardiomegaly probably related to poor inspiration and poor technique. IMPRESSION: Bibasilar opacities likely a combination of atelectasis and pleural effusions. Reviewed, Interpreted and Dictated by Kandi Velásquez MD Transcribed by Diana Mendoza Authenticated and [facility][1]
--- NOTE | 2022-07-28 11:27 | PC.NURSE ---
DR GAMA AT BEDSIDE
[2022-07-28 11:35] LABS: Basophils % 0.5 % (0.1-2.0); Eosinophils # 0.3 K/mm3 (0.0-0.4); Eosinophils % 3.3 % (0.1-12.0); Hematocrit 43.7 % (42.0-52.0); Hemoglobin 13.6 g/dL (14.1-18.0); Lymphocytes # 1.7 K/mm3 (0.7-4.5); Mean Corpuscular HGB Conc 31.2 g/dL (31.8-35.4); Mean Corpuscular Volume 86.6 fl (80-94); Mean Platelet Volume 7.3 fl (7.4-10.4); Monocytes # 0.6 K/mm3 (0.1-1.0); Monocytes % 6.4 % (1.7-9.3); Neutrophils # 6.4 K/mm3 (1.8-7.8); Neutrophils % 70.9 % (37.0-80.0); Platelet Count 224 K/mm3 (142-424); Red Blood Count 5.04 M/mm3 (4.60-6.20); Red Cell Distribution Width 16.3 % (11.5-17.5)
--- NOTE | 2022-07-28 11:37 | HMH.EDGENADL ---
Discharge Plan Disposition Patient Disposition: Admitted As Inpatient Condition: Other Chief Complaint: Shortness of Breath/Dyspnea Clinical Impressions Clinical Impression: Acute non-ST elevation myocardial infarction (NSTEMI), Acute exacerbation of CHF (congestive heart failure), Pulmonary edema cardiac cause, Acute respiratory failure with hypoxemia Discharge ED Provider: Huey Stewart A General Adult HPI General Chief complaint: Shortness of Breath/Dyspnea Stated complaint: dizzy, soa, phy ref Time Seen by Provider: 07/28/22 11:13 Mode of Arrival: Ambulatory Source of Information: Spouse Limitations: No Limitations Description of Symptoms (Recalled from ER Triage Doc. by RN): PT BROUGHT IN BY , PT WITH DEMENTIA. REPORTS PT IS SHORT OF BREATH AND HAD DIZZINESS THAT STARTED YESTERDAY History of Present Illness HPI narrative: This is a 81-year-old male with history of hypertension, hyperlipidemia, CAD, diabetes, dementia, aortic stenosis presenting with multiple complaints. Patient has no personal complaints, history provided by who is at bedside. She states he has been short of breath for approximately 24 hours now. Started when he was sitting down, better when he sits up, worse when he lies flat, she states he has been coughing at night. Cough is nonproductive. Patient has not had fevers, chills, vomiting, diarrhea, cold or flu symptoms. No lower extremity swelling. She states that shortness of breath is also worse with exertion, but patient has not been complaining of chest pain or any other complaints. Related Data Home Medications Medication Instructions Recorded Confirmed lisinopril 20 1 tab PO DAILY High blood pressure 10/06/17 07/28/22 mg-hydrochlorothiazide 12.5 mg 90 days #180 tabs tablet memantine ER 28 mg-donepezil 10 mg 1 cap PO DAILY memory 90 days 10/06/17 07/28/22 capsule sprinkle,ext.release 24 hr insulin glargine 100 unit/mL (3 25 unit SQ DAILY Diabetes 90 days 10/07/19 07/28/22 mL) subcutaneous pen #22.5 mL empagliflozin 25 mg tablet 25 mg PO DAILY Diabetes 03/30/22 07/28/22 (Jardiance) potassium chloride 10 mEq 10 meq PO DAILY Supplement 07/09/22 07/28/22 capsule,extended release aspirin 81 mg tablet,delayed 81 mg PO DAILY HEART HEALTH 07/28/22 07/28/22 release atorvastatin 40 mg tablet 40 mg PO HS Cholesterol 07/28/22 07/28/22 clopidogrel 75 mg tablet 75 mg PO DAILY platelet inhibitor 07/28/22 07/28/22 diltiazem HCl 180 mg 180 mg PO DAILY HEART RATE 07/28/22 07/28/22 capsule,extended release 24 hr furosemide 20 mg tablet 20 mg PO DAILYP PRN Edema 07/28/22 07/28/22 latanoprost 0.005 % eye drops 1 drp ophthalmic (eye) HS Glaucoma 07/28/22 07/28/22 omeprazole 20 mg capsule,delayed 20 mg PO DAILY Reflux/Acid reflux 07/28/22 07/28/22 release Allergies Allergy/AdvReac Type Severity Reaction Status Date / Time No Known Drug Allergies Allergy Unknown Verified 07/09/22 14:53 [facility] Disclaimer: The information contained in this section may have been updated after the patient was seen, as this information can be updated by other users. Medical History (Updated 07/28/22 @ 13:19 by Huey Stewart MD) Dementia Diabetes Family History (Updated 07/28/22 @ 11:28 by Brynn Farris RN) Other No significant family history Social History (Updated 07/28/22 @ 11:28 by Brynn Farris RN) Smoking Status: Former smoker second hand exposure: No alcohol intake: never counseling provided: none substance use type: denies use current occupational status: retired Travel in the last 8 weeks: None household members: spouse housing: house current occupational exposures/hazards: No caffeine: Yes ROS Obtained: Yes All systems reviewed & no additional complaints except as documented Physical Exam General General appearance: alert and in no apparent distress Head Head exam: atraumatic, normocephalic and normal inspection Eye Eye exa
--- NOTE | 2022-07-28 11:38 | PC.NURSE ---
XR AT BEDSIDE
[2022-07-28 11:44] LABS: Chloride 100 mmol/L (98-107); Potassium 3.9 mmoL/L (3.5-5.1); Sodium 139 mmol/L (136-145)
[2022-07-28 11:46] LABS: Alanine Aminotransferase 24 U/L (12-78); Blood Urea Nitrogen 25 mg/dl (9-20); Creatinine Clearance Estimated 44 mL/min (50-200); Estimated Glomerular Filt Rate 49 ml/min (>60); GFR (African American) 59 ML/MIN (>60)
[2022-07-28 11:47] LABS: Albumin Level 3.2 g/dl (3.5-5.0); Alkaline Phosphatase 116 U/L (38-126); Anion Gap 13.9 mEq/L (5-15); Aspartate Amino Transferase 36 U/L (17-59); Bilirubin,Total 1.4 mg/dl (0.2-1.3); Calcium 8.6 mg/dl (8.4-10.2); Carbon Dioxide 29 mmol/L (22.0-30.0); Globulin 3.1 g/dL (1.3-3.2); Glucose 202 mg/dl (74-100); Total Protein,Serum 6.3 g/dl (6.3-8.2)
[2022-07-28 11:49] LABS: NT Pro Brain Natriuretic Pep. 9090 pg/mL (0-450)
[2022-07-28 11:53] LABS: Troponin I 1.06 ng/ml (0.00-0.034)
--- NOTE | 2022-07-28 11:55 | PC.NURSE ---
notified of critical trop
--- NOTE | 2022-07-28 11:57 | ECG_ITS ---
APPROVED REPORT Exam: Resting ECG HR:93 bpm ECG Measurements Heart Rate 93 AXES ME 216 P 31 QRSd 130 QRS 255 QT 408 T 20 QTc 458 Conclusion SINUS RHYTHM WITH FIRST DEGREE AV BLOCK WITH FREQUENT SUPRAVENTRICULAR PREMATURE COMPLEXES RIGHT AXIS DEVIATION [QRS AXIS > 100] RIGHT BUNDLE BRANCH BLOCK Old septal changes ABNORMAL ECG UNCONFIRMED REPORT Electronically signed by : Isac Rodriguez MD 07/29/2022 22:07:45
--- NOTE | 2022-07-28 11:58 | PC.NURSE ---
sent covid swab to lab
--- NOTE | 2022-07-28 12:00 | PC.NURSE ---
calling dr pool office for lidia hollis to speak with dr pool
[2022-07-28 12:04] LABS: Coronavirus 19, PCR Not Detected (NotDetected)
[2022-07-28 12:05] LABS: Influenza A, PCR Not Detected (NotDetected); Influenza B, PCR Not Detected (NotDetected)
--- NOTE | 2022-07-28 12:09 | CT_ITS ---
FINAL REPORT TECHNIQUE: Thin section axial CT with contrast with multiplanar reconstruction CLINICAL HISTORY: new hypoxemia and soa COMPARISON: September 2019 FINDINGS: Pulmonary vessels enhance in normal fashion without evidence of embolism. Thoracic aorta shows no dissection or aneurysm. Diffuse ground-glass opacities most compatible with edema. Moderate bilateral pleural effusions. There is no significant pericardial effusion. No mediastinal or hilar adenopathy is present. IMPRESSION: 1. No evidence of pulmonary embolism. 2. Findings suggestive of moderate to severe CHF. Reviewed, Interpreted and Dictated by Kandi Velásquez MD Transcribed by Sanju Ingram Authenticated and . [facility]
--- NOTE | 2022-07-28 12:09 | PC.NURSE ---
DR GAMA SPEAKING WITH DR PENA
--- NOTE | 2022-07-28 12:12 | PC.NURSE ---
rounded on pt no complaints at this time, at bs
--- NOTE | 2022-07-28 12:16 | PC.NURSE ---
[facility] NOTIFIED OF ADMISSION
--- NOTE | 2022-07-28 12:17 | PC.NURSE ---
PT TO CT AT THIS TIME
--- NOTE | 2022-07-28 12:17 | PC.NURSE ---
Patient going to CT
--- NOTE | 2022-07-28 12:27 | PC.NURSE ---
pt arrived back to room from ct
--- NOTE | 2022-07-28 12:50 | PC.NURSE ---
REPORT GIVEN TO Eric RAYMOND RN
--- NOTE | 2022-07-28 12:56 | HMH.PHAINT1 ---
Pharmacy Intervention Comments: MEDICATION RECONCILIATION COMPLETED ON PATIENT USING EXTERNAL FILL HISTORY FROM PHARMACY AND LIST FROM CARDIOLOGY OFFICE. -AYANNA AMEZCUA, SAMID
--- NOTE | 2022-07-28 13:35 | PC.NURSE ---
PT GOING UP FOR ADMISSION
--- NOTE | 2022-07-28 14:13 | EXP.CARD.CON ---
History of Present Illness History of Present Illness Consult date: 07/28/22 Requesting physician: Isac Rodriguez Consult reason: shortness of breath Chief complaint: Dyspnea History of present illness: History obtained from chart as patient has dementia, not present at bedside: 81-year-old white male with history of CAD status post LEANA to LAD and RCA in March 2022, carotid artery stenosis greater than 70% LICA, less than 50% RAJ, dementia, critical aortic stenosis- not a candidate for surgery due to age and dementia per Dr. Del Real 2022, hyperlipidemia and DM II presented to emergency department today for evaluation of worsening soa. reported she noticed patient had increased soa for the past 24 hours, exacerbated with laying flat and exertion. She also reported patient had a non productive cough. Patient denied any complaints on presentation. Initial EKG shows sinus tachycardia at a rate of 103 with occasional supraventricular premature complexes, right bundle branch block, left posterior fascicular block and possible septal infarction age undetermined-with no acute changes noted. A CTA of chest was negative for pulmonary embolism and showed findings suggestive of moderate to severe CHF. Labs as follow: WBC 9.0, hemoglobin 13.6, platelet count 224, sodium 139, potassium 3.9, BUN 25, creatinine 1.4, troponin 1.06, proBNP 9090. Respiratory panel was negative for influenza and COVID. Preliminary echo report shows critical aortic stenosis, small pericardial effusion, decreased EF estimated 30-40%, official read pending. Initial oxygen saturation was high 80s upon presentation to ER. Patient was admitted to hospital for acute chf and cardiology evaluation. [facility] Disclaimer: The information contained in this section may have been updated after the patient was seen, as this information can be updated by other users. Medical History (Updated 07/28/22 @ 14:32 by Di Wilson APRN) Dementia Diabetes Hyperlipidemia Hypertension Family History (Updated 07/28/22 @ 11:28 by Brynn Farris RN) Other No significant family history Social History (Updated 07/28/22 @ 11:28 by Brynn Farris RN) Smoking Status: Former smoker second hand exposure: No alcohol intake: never counseling provided: none substance use type: denies use current occupational status: retired Travel in the last 8 weeks: None household members: spouse housing: house current occupational exposures/hazards: No caffeine: Yes Review of Systems Review of Systems Review of systems:: pertinent systems reviewed and negative unless documented below *Cardiovascular Cardiovascular: Reports dyspnea *Respiratory Respiratory: Reports cough and Reports dyspnea Exam Data for Last 24 hours Vital signs and Labs for Last 24 Hours: Temp Pulse Resp BP Pulse Ox 98.0 F 91 H 22 124/73 96 07/28/22 13:50 07/28/22 13:50 07/28/22 13:50 07/28/22 13:50 07/28/22 13:50 Laboratory Results - last 24 hr 07/28/22 11:20: WBC 9.0, RBC 5.04, Hgb 13.6 L, Hct 43.7, MCV 86.6, MCH 27.0, MCHC 31.2 L, RDW 16.3, Plt Count 224, MPV 7.3 L, Neut % (Auto) 70.9, Lymph % (Auto) 19.0, [place] % (Auto) 6.4, Eos % (Auto) 3.3, Baso % (Auto) 0.5, Neut # (Auto) 6.4, Lymph # (Auto) 1.7, [place] # (Auto) 0.6, Eos # (Auto) 0.3, Baso # (Auto) 0.0 07/28/22 11:20: Sodium Cancelled, Potassium Cancelled, Chloride Cancelled, Carbon Dioxide Cancelled, Anion Gap Cancelled, BUN Cancelled, Creatinine Cancelled, Estimated Creat Clear Cancelled, Estimated GFR Cancelled, Est GFR ( Amer) Cancelled, Glucose Cancelled, Calcium Cancelled, Troponin I 1.06 H, NT-Pro-B Natriuret Pep 9090 H 07/28/22 11:28: Sodium 139, Potassium 3.9, Chloride 100, Carbon Dioxide 29, Anion Gap 13.9, BUN 25 H, Creatinine 1.40 H, Estimated Creat Clear 44, Estimated GFR 49 L, Est GFR ( Amer) 59, Glucose 202 H, Calcium 8.6, Total Bilirubin 1.4 H, AST 36, ALT 24, Alkaline Phosphatase 116, Total Pro
[2022-07-28 15:28] LABS: Troponin I 1.01 ng/ml (0.00-0.034)
--- NOTE | 2022-07-28 15:37 | SW/DCPLANNER ---
Addendum entered by Marisol Mack 07/29/22 08:03: After discussion w/ Shelby at Hospice and patient's : the plan is to discharge patient home today w/ Hospice admission once he returns home. Original Note: Per MD request patient information has been faxed to Shelby miller/ [facility]. The plan for this patient would be to discharge home w/ Hospice services tomorrow. MD stated that is agreeable at this time.
[2022-07-28 17:39] LABS: Chloride 94 mmol/L (98-107)
[2022-07-28 17:40] LABS: Potassium 3.8 mmoL/L (3.5-5.1); Sodium 137 mmol/L (136-145)
--- NOTE | 2022-07-28 17:42 | EXP.HP ---
History of Present Illness *Admission Date: 07/28/22 *Reason for visit:: Worsening dyspnea *History of present illness: 81-year-old white male with history of CAD status post LEANA to LAD and RCA in March 2022, carotid artery stenosis greater than 70% LICA, less than 50% RAJ, dementia, critical aortic stenosis- not a candidate for surgery due to age and dementia per Dr. Del Real 2022, hyperlipidemia and DM II presented to emergency department today for evaluation of worsening soa. reported she noticed patient had increased soa for the past 24 hours, exacerbated? with laying flat and exertion. She also reported patient had a non productive cough. Patient denied any complaints on presentation.? Initial EKG shows sinus tachycardia at a rate of 103 with occasional supraventricular premature complexes, right bundle branch block, left posterior fascicular block and possible septal infarction age undetermined-with no acute changes noted.? A CTA of chest was negative for pulmonary embolism and showed findings suggestive of moderate to severe CHF.? Labs as follow: WBC 9.0, hemoglobin 13.6, platelet count 224, sodium 139, potassium 3.9, BUN 25, creatinine 1.4, troponin 1.06, proBNP 9090.? Respiratory panel was negative for influenza and COVID.? Preliminary echo report shows critical aortic stenosis, small pericardial effusion, decreased EF estimated 30-40%, official read pending. Initial oxygen saturation was high 80s upon presentation to ER. Patient was admitted to hospital for acute chf and cardiology evaluation.? Above note per cardiology consultation-appreciate note. Discussed case with , she notes that his abdomen has been swelling in the abdominal wall which to her usually means that he is retaining fluid. Has not noticed fluid in his ankles. He denies pain. [facility] Disclaimer: The information contained in this section may have been updated after the patient was seen, as this information can be updated by other users. Medical History (Updated 07/28/22 @ 14:32 by Di Wilson APRN) Dementia Diabetes Hyperlipidemia Hypertension Family History (Updated 07/28/22 @ 11:28 by Brynn Farris RN) No significant family history Social History (Updated 07/28/22 @ 11:28 by Brynn Farris RN) Smoking Status: Former smoker second hand exposure: No alcohol intake: never counseling provided: none substance use type: denies use current occupational status: retired Travel in the last 8 weeks: None household members: spouse housing: house current occupational exposures/hazards: No caffeine: Yes Review of Systems Review of Systems Review of systems:: pertinent systems reviewed and negative unless documented below Meds Home Medications and Allergies Home Medications Medication Instructions Recorded Confirmed Type lisinopril 20 1 tab PO DAILY High blood pressure 10/06/17 07/28/22 History mg-hydrochlorothiazide 12.5 mg 90 days #180 tabs tablet memantine ER 28 mg-donepezil 10 mg 1 cap PO DAILY memory 90 days 10/06/17 07/28/22 History capsule sprinkle,ext.release 24 hr insulin glargine 100 unit/mL (3 25 unit SQ DAILY Diabetes 90 days 10/07/19 07/28/22 History mL) subcutaneous pen #22.5 mL empagliflozin 25 mg tablet 25 mg PO DAILY Diabetes 03/30/22 07/28/22 History (Jardiance) potassium chloride 10 mEq 10 meq PO DAILY Supplement 07/09/22 07/28/22 History capsule,extended release aspirin 81 mg tablet,delayed 81 mg PO DAILY HEART HEALTH 07/28/22 07/28/22 History release atorvastatin 40 mg tablet 40 mg PO HS Cholesterol 07/28/22 07/28/22 History empagliflozin 25 mg tablet 25 mg PO DAILY Diabetes 07/28/22 07/28/22 History (Jardiance) latanoprost 0.005 % eye drops 1 drp ophthalmic (eye) HS Glaucoma 07/28/22 07/28/22 History New Prescriptions to Start Prescriptions: Allergies Allergy/AdvReac Type Severity Reaction Status Date / Time No Known Drug Allergies Allergy Unknow
[2022-07-28 17:43] LABS: Anion Gap 13.8 mEq/L (5-15); Blood Urea Nitrogen 27 mg/dl (9-20); Calcium 8.5 mg/dl (8.4-10.2); Carbon Dioxide 33 mmol/L (22.0-30.0); Creatinine Clearance Estimated 38 mL/min (50-200); Estimated Glomerular Filt Rate 42 ml/min (>60); GFR (African American) 51 ML/MIN (>60); Glucose 248 mg/dl (74-100)
--- NOTE | 2022-07-28 18:27 | PC.NURSE ---
pt alert to to self. no skin issues noted. 3l o2 via nc. no c/o pain or soa since arriving to floor. at bedside. nsr on tele. cb within reach. widfe instructed to notified staff when she leaves so staff can turn pts bed alarm on.
[2022-07-28 20:30] LABS: POC Glucose,Bedside 358 (70-110)
[2022-07-29] VITALS: BP 112/69; PULSE 80; PULSE 82; RESP 18; TEMP 36.4; O2SAT 97
--- NOTE | 2022-07-29 02:32 | PC.NURSE ---
Pt. was up walking around in the room and had removed his tele and aso his iv.
--- NOTE | 2022-07-29 03:25 | PC.NURSE ---
New 20g place in the right FA and wrapped with coban, tele applied, bed alarm on.
[2022-07-29 04:00] VITALS: BP 112/53; PULSE 65; PULSE 70; RESP 18; TEMP 36.3; O2SAT 98; BMI 26.5
[2022-07-29 05:26] LABS: POC Glucose,Bedside 89 (70-110)
[2022-07-29 06:18] LABS: Anion Gap 12.5 mEq/L (5-15); Blood Urea Nitrogen 30 mg/dl (9-20); Calcium 8.6 mg/dl (8.4-10.2); Carbon Dioxide 33 mmol/L (22.0-30.0); Chloride 96 mmol/L (98-107); Creatinine Clearance Estimated 46 mL/min (50-200); Estimated Glomerular Filt Rate 49 ml/min (>60); GFR (African American) 59 ML/MIN (>60); Glucose 87 mg/dl (74-100); Potassium 3.5 mmoL/L (3.5-5.1); Sodium 138 mmol/L (136-145)
[2022-07-29 06:24] LABS: NT Pro Brain Natriuretic Pep. 8200 pg/mL (0-450)
[2022-07-29 07:37] VITALS: BP 110/65; PULSE 91; RESP 21; TEMP 36.6; O2SAT 95
[2022-07-29 08:04] VITALS: PULSE 90
--- NOTE | 2022-07-29 08:17 | EXP.DC.SUM ---
General Admission date:: 07/28/22 Discharge date: 07/29/22 HPI HPI HPI: 81-year-old male with history of coronary disease status post stenting in March of this year with critical aortic stenosis, had been referred to [facility] for TAVR evaluation but cardiology had declined to do the procedure because of his advanced age, and dementia after discussing case with family. Has been home and has been fairly stable until the last 48 hours when he began to have a lot of breathlessness with activity and with lying flat. He was brought to the emergency department yesterday morning. In the ER found to have markedly elevated BNP levels. CTA was negative, other labs were negative and he was admitted for acute CHF. Please see cardiology consult from ER for details. Hospital Course Hospital Course Hospital Course: Patient was admitted. Echocardiogram shows reduced ejection fraction-formal read is pending. Critical still noted. Patient was diuresed with IV Lasix and then with 1 dose of IV Bumex last night and responded well. His shortness of air resolved. Talk with his about further options. Given the lack of surgical options-and she does not wish to entertain further opinions about surgery-and his severe dementia with his DNR status we discussed hospice care. She thought this is a good idea as she needs some extra help at home given his increasing need for care. Hospice was consulted and they will meet with and patient at home today. We will discharge home, he is only been taking Lasix as needed, I instructed to begin doing this daily and then will monitor fluid balance with hospice services. We will continue to follow patient on hospice. Follow-up will be in our offices and per hospice care Exam Data for Last 24 hours Vital signs and Labs for Last 24 Hours: Temp Pulse Resp BP Pulse Ox 97.8 F 91 H 21 110/65 95 07/29/22 07:37 07/29/22 07:37 07/29/22 07:37 07/29/22 07:37 07/29/22 07:37 Laboratory Results - last 24 hr 07/28/22 11:20: WBC 9.0, RBC 5.04, Hgb 13.6 L, Hct 43.7, MCV 86.6, MCH 27.0, MCHC 31.2 L, RDW 16.3, Plt Count 224, MPV 7.3 L, Neut % (Auto) 70.9, Lymph % (Auto) 19.0, [place] % (Auto) 6.4, Eos % (Auto) 3.3, Baso % (Auto) 0.5, Neut # (Auto) 6.4, Lymph # (Auto) 1.7, [place] # (Auto) 0.6, Eos # (Auto) 0.3, Baso # (Auto) 0.0 07/28/22 11:20: Sodium Cancelled, Potassium Cancelled, Chloride Cancelled, Carbon Dioxide Cancelled, Anion Gap Cancelled, BUN Cancelled, Creatinine Cancelled, Estimated Creat Clear Cancelled, Estimated GFR Cancelled, Est GFR ( Amer) Cancelled, Glucose Cancelled, Calcium Cancelled, Troponin I 1.06 H, NT-Pro-B Natriuret Pep 9090 H 07/28/22 11:28: Sodium 139, Potassium 3.9, Chloride 100, Carbon Dioxide 29, Anion Gap 13.9, BUN 25 H, Creatinine 1.40 H, Estimated Creat Clear 44, Estimated GFR 49 L, Est GFR ( Amer) 59, Glucose 202 H, Calcium 8.6, Total Bilirubin 1.4 H, AST 36, ALT 24, Alkaline Phosphatase 116, Total Protein 6.3, Albumin 3.2 L, Globulin 3.1, Albumin/Globulin Ratio 1.0 L 07/28/22 12:00: SARS-CoV-2 (PCR) Not detected, Influenza A Untype (PCR) Not detected, Influenza Type B (PCR) Not detected 07/28/22 14:43: Troponin I 1.01 H 07/28/22 17:15: Troponin I 0.90 H 07/28/22 17:15: Sodium 137, Potassium 3.8, Chloride 94 L, Carbon Dioxide 33 H, Anion Gap 13.8, BUN 27 H, Creatinine 1.60 H, Estimated Creat Clear 38, Estimated GFR 42 L, Est GFR ( Amer) 51 L, Glucose 248 H D, Calcium 8.5 07/28/22 20:15: POC Glucose 358 H* 07/29/22 05:17: POC Glucose 89 07/29/22 05:40: Sodium 138, Potassium 3.5, Chloride 96 L, Carbon Dioxide 33 H, Anion Gap 12.5, BUN 30 H, Creatinine 1.40 H, Estimated Creat Clear 46, Estimated GFR 49 L, Est GFR ( Amer) 59, Glucose 87 D, Calcium 8.6, NT-Pro-B Natriuret Pep 8200 H I & O for Last 24 hours: Intake & Output 07/26/22 07/27/22 07/28/22 07/29/22 11:59 11:59 11:59 11:59 Intake Total 1200 / 1200 Output Total 200
--- NOTE | 2022-07-29 08:33 | EXP.CARD.PN ---
Subjective Subjective Date: 07/29/22 Time: 08:00 Principal diagnosis: chf exacerbation Interval history: Doing well this morning, denies symptoms. AM labs reviewed. Exam Data for Last 24 hours Vital signs and Labs for Last 24 Hours: Temp Pulse Resp BP Pulse Ox 97.8 F 91 H 21 110/65 95 07/29/22 07:37 07/29/22 07:37 07/29/22 07:37 07/29/22 07:37 07/29/22 07:37 Laboratory Results - last 24 hr 07/28/22 11:20: WBC 9.0, RBC 5.04, Hgb 13.6 L, Hct 43.7, MCV 86.6, MCH 27.0, MCHC 31.2 L, RDW 16.3, Plt Count 224, MPV 7.3 L, Neut % (Auto) 70.9, Lymph % (Auto) 19.0, [place] % (Auto) 6.4, Eos % (Auto) 3.3, Baso % (Auto) 0.5, Neut # (Auto) 6.4, Lymph # (Auto) 1.7, [place] # (Auto) 0.6, Eos # (Auto) 0.3, Baso # (Auto) 0.0 07/28/22 11:20: Sodium Cancelled, Potassium Cancelled, Chloride Cancelled, Carbon Dioxide Cancelled, Anion Gap Cancelled, BUN Cancelled, Creatinine Cancelled, Estimated Creat Clear Cancelled, Estimated GFR Cancelled, Est GFR ( Amer) Cancelled, Glucose Cancelled, Calcium Cancelled, Troponin I 1.06 H, NT-Pro-B Natriuret Pep 9090 H 07/28/22 11:28: Sodium 139, Potassium 3.9, Chloride 100, Carbon Dioxide 29, Anion Gap 13.9, BUN 25 H, Creatinine 1.40 H, Estimated Creat Clear 44, Estimated GFR 49 L, Est GFR ( Amer) 59, Glucose 202 H, Calcium 8.6, Total Bilirubin 1.4 H, AST 36, ALT 24, Alkaline Phosphatase 116, Total Protein 6.3, Albumin 3.2 L, Globulin 3.1, Albumin/Globulin Ratio 1.0 L 07/28/22 12:00: SARS-CoV-2 (PCR) Not detected, Influenza A Untype (PCR) Not detected, Influenza Type B (PCR) Not detected 07/28/22 14:43: Troponin I 1.01 H 07/28/22 17:15: Troponin I 0.90 H 07/28/22 17:15: Sodium 137, Potassium 3.8, Chloride 94 L, Carbon Dioxide 33 H, Anion Gap 13.8, BUN 27 H, Creatinine 1.60 H, Estimated Creat Clear 38, Estimated GFR 42 L, Est GFR ( Amer) 51 L, Glucose 248 H D, Calcium 8.5 07/28/22 20:15: POC Glucose 358 H* 07/29/22 05:17: POC Glucose 89 07/29/22 05:40: Sodium 138, Potassium 3.5, Chloride 96 L, Carbon Dioxide 33 H, Anion Gap 12.5, BUN 30 H, Creatinine 1.40 H, Estimated Creat Clear 46, Estimated GFR 49 L, Est GFR ( Amer) 59, Glucose 87 D, Calcium 8.6, NT-Pro-B Natriuret Pep 8200 H I & O for Last 24 hours: Intake & Output 07/26/22 07/27/22 07/28/22 07/29/22 23:59 23:59 23:59 23:59 Intake Total 480 / 480 720 / 720 Output Total 200 / 200 0 / 0 Balance 280 / 280 720 / 720 Weight 160 lb 169 lb 1 oz Constitutional Constitutional: no acute distress *Routine Respiratory Exam Respiratory: Present rhonchi (Lung sound improved from yesterday), diminished air movement and symmetric chest movement *Routine Cardiovascular Exam Cardiovascular: Present Normal S1, Normal S2 and murmur *Routine Abdominal Exam Abdominal: Present soft and normoactive bowel sounds; Absent tenderness *Routine Extremities Exam Extremities: Present full ROM and normal capillary refill; Absent edema *Routine Skin Exam Skin: Present intact, dry and warm Detailed Neck Exam: Thyroids Thyroid: Absent bruit Progress Note: A&P Assessment and plan (1) CAD (coronary artery disease): Status: Chronic (2) Aortic stenosis: Status: Chronic (3) Elevated troponin: Status: Acute (4) HTN (hypertension): Status: Chronic (5) HLD (hyperlipidemia): Status: Chronic (6) Elevated troponin: Status: Acute (7) Acute respiratory failure with hypoxemia: Status: Acute (8) Heart failure with reduced ejection fraction: Status: Acute Assessment and Plan Assessment and Plan for All Diagnoses:: Acute HFrEF NYHA III Critical Aortic stenosis -Echo from March 2022 shows an estimated ejection fraction of 55% with no regional wall motion abnormality, grade 1 diastolic dysfunction, thickened and calcified aortic valve with critical aortic stenosis, valve area 0.46 cm, mild aortic insufficiency. -Patient was evaluated March [address] Del Real at for valve and deemed not a surgical can
== END 2022-07-29 10:35 | disposition hospice, home (50) ==
LOC: ER 11:20 → 2ND 12:30
PROVIDERS: Admitting Provider Internal Medicine Adolescent Medicine; Emergency Provider Emergency Medicine; PCP Nurse Practitioner Family; Visit Provider Internal Medicine Adolescent Medicine
DX: I21.4 Non-ST elevation (NSTEMI) myocardial infarction (principal); I11.0 Hypertensive heart disease with heart failure; I35.0 Nonrheumatic aortic (valve) stenosis; I25.10 Atherosclerotic heart disease of native coronary artery without angina pectoris; J96.01 Acute respiratory failure with hypoxia; I50.21 Acute systolic (congestive) heart failure; Z79.4 Long term (current) use of insulin; Z95.5 Presence of coronary angioplasty implant and graft; Z79.899 Other long term (current) drug therapy; Z79.01 Long term (current) use of anticoagulants; Z66 Do not resuscitate; I65.23 Occlusion and stenosis of bilateral carotid arteries; Z87.891 Personal history of nicotine dependence; Z20.822 Contact with and (suspected) exposure to COVID-19
CPT/HCPCS: G0378; 36415; 71045; 71275; 80048; 80053; 82962; 83880; 84484; 85025; 93005; 93306; 99285; C9803; Q9967; U0003; U0005